=== PATIENT | male | born 1975 | race Caucasian/White ===

== ENCOUNTER → 2021-04-12 11:22 | Outpatient (BNVA) | payer OTHER, SELFPAY | PROVIDERS: Visit Provider Internal Medicine | DX: A69.20 Lyme disease, unspecified (principal); Z88.8 Allergy status to other drugs, medicaments and biological substances | CPT/HCPCS: 99202 ==

== ENCOUNTER 2022-01-10 08:01 | Emergency (ER) | payer OTHER, SELFPAY ==
--- NOTE | ~2022-01-10 | XR_ITS ---
EXAMINATION: XR FOOT, RIGHT CLINICAL INFORMATION: Trauma COMPARISON: None TECHNIQUE: AP, lateral, and oblique views of the right foot. FINDINGS: Soft tissue irregularity along the medial aspect of the right foot is most consistent with laceration. There is no radiopaque foreign body. No underlying osseous abnormality. Bones of the midfoot are well aligned. No tarsal, metatarsal or phalangeal fracture. Mild degenerative changes of the first MTP joint. No gross ankle joint effusion. Tiny posterior calcaneal enthesophyte. XR/XR foot RT min 3V IMPRESSION: Soft tissue laceration of the medial foot without osseous injury.
[2022-01-10 08:08] VITALS: BP 107/68; PULSE 85; RESP 20; TEMP 36.9; O2SAT 95; BMI 34.9
--- NOTE | 2022-01-10 08:39 | ED_ITS ---
HPI - Wound/Laceration General Chief Complaint: Wound/Laceration Stated Complaint: R foot lac Time Seen by Provider: 01/10/22 08:34 Source: patient and family Limitations: no limitations History of Present Illness HPI narrative: Patient states he dropped a plate on his right foot last night sustaining a laceration. Bleeding controlled prior to arrival. No other injuries or complaints. He is not up-to-date on tetanus. He denies weakness numbness or paresthesias Related Data Home Medications Medication Instructions Recorded Confirmed allopurinol 100 mg tablet 100 mg PO DAILY 04/12/21 lisinopril 10 mg tablet 10 mg PO DAILY 04/12/21 Previous Rx's Medication Instructions Recorded doxycycline monohydrate 100 mg 100 mg PO BID 30 days #60 tabs 04/12/21 tablet Allergies Allergy/AdvReac Type Severity Reaction Status Date / Time ibuprofen [IBUPROFEN] Allergy Unknown RASH Verified 04/12/21 11:33 Review of Systems Constitutional: Comments: no fevers Musculoskeletal: Comments: no weakness numbness or paresthesias. He is able to move his toes Integumentary/Breasts: Comments: right foot laceration Neurologic: Comments: no weakness PMFSH Past Medical History Medical History (Updated 01/10/22 @ 10:19 by Jason Regalado MD) Lyme disease Social History Social History Advance Directives: No Advance Directives Information Provided: No Physical Exam Vital Signs: Vital Signs: Last Vital Signs Temp 98.5 F 01/10/22 08:08 Pulse 85 01/10/22 08:08 Resp 20 01/10/22 08:08 BP 107/68 01/10/22 08:08 Pulse Ox 95 01/10/22 08:08 O2 Del Method 01/10/22 08:08 BMI result Body Mass Index 34.9 Const: Other: awake alert and in no acute distress Resp: Other: no dyspnea Skin: Other: 4 cm laceration to the medial aspect of his right foot, area of the mid foot. No active bleeding. Wound appears deep with possible tendon exposure Neuro: Other: no weakness numbness or paresthesias. Sensation is intact distal to the laceration Extrem: Other: full range of motion of great toe Course Course Course Narrative: right foot laceration with possible tendon exposure but no evidence of tendon laceration. Sutures, copious irrigation, tetanus, antibiotics 10:13 Exploration of wound under anesthesia shows positive tendon laceration to a medial tendon. Patient does have diminished abduction of his great toe. Full range of motion in flexion and extension however. Sensation is intact Wound sutured with good results and good hemostasis. I will discharge him home on antibiotics with Podiatry follow-up with question of tendon repair if indicated for this type of lesion. Procedures Procedure Narrative Procedure Narrative: Wound explored with tendon laceration as noted. Skin closed with good results Laceration Laceration 1: Site: lower extremity Side (If applicable): right Size (cm): 10 Description: linear Depth: involves tendon Local Anesthetic: lidocaine 1% Amount of anesthesia used (mL): 10 Pre-repair: wound explored and irrigated extensively Skin layer closed with: nylon Size (cm): 3-0 Technique: running Discharge Plan Discharge Clinical Impression: Laceration Patient Disposition: Home, Self-Care Instructions: Tendon Laceration (ED), Laceration (ED) Additional Instructions: sutures out in 3 weeks. Follow-up with [facility]. Call . Call today Prescriptions: No Action lisinopril 10 mg tablet 10 mg PO DAILY allopurinol 100 mg tablet 100 mg PO DAILY doxycycline monohydrate 100 mg tablet 100 mg PO BID 30 Days Qty: 60 0RF
[2022-01-10] MEDS: Diphth,Pertus(ACell),Tet Adult 0.5 ML SYRINGE IM (09:24)
[2022-01-10] MEDS: Lidocaine HCl 1 % MPF 5 ML VIAL 20 ML INFILTRATI (10:12)
[2022-01-10] MEDS: cephALEXin 500 MG CAPSULE 1000 MG PO (10:12)
--- NOTE | 2022-01-10 10:15 | PC.NURSE ---
After physican sutureed wound a dry clean dressing was placed over wound and wrapped with kirlex.
== END 2022-01-10 10:32 | disposition home or self-care (01) ==
PROVIDERS: Emergency Provider Emergency Medicine
DX: S91.311A Laceration without foreign body, right foot, initial encounter (principal); W20.8XXA Other cause of strike by thrown, projected or falling object, initial encounter; Y93.89 Activity, other specified; Y92.010 Kitchen of single-family (private) house as the place of occurrence of the external cause; Y99.9 Unspecified external cause status
CPT/HCPCS: 12044; 73630; 90471; 90715; 99282; 99283; 99284

== ENCOUNTER 2022-01-14 08:39 | Emergency (ER) | payer OTHER, SELFPAY ==
[2022-01-14 08:57] VITALS: BP 152/93; PULSE 88; RESP 18; TEMP 36.4; O2SAT 98; BMI 34.9
--- NOTE | 2022-01-14 09:58 | ED.GENADULT ---
HPI - General Adult General Chief complaint: Extremity Injury, Lower Stated complaint: leg pain Time Seen by Provider: 01/14/22 09:58 Source: patient Mode of arrival: ambulatory Limitations: no limitations History of Present Illness HPI narrative: Patient is a 46 year old male presenting to the emergency department today with a right foot injury. Patient states that a few days ago he stepped on glass and had to get stitches placed here. Patient states that he was prescribed antibiotics but has not picked them up. Patient states that his foot is now more painful and swollen. Patient denies any dizziness, lightheadedness, abdominal pain, nausea, vomiting, fever, chills, blurry vision, double vision, loss of vision, chest pain, difficulty breathing, shortness of breath, back pain, night sweats, pain with urination, increased urinary frequency, increased urinary urgency, blood in his urine or stool, syncope or a near syncopal episode, new trauma, falls, bowel incontinence, bladder incontinence, bowel retention, bladder retention, or any other complaints at this time. Onset (ago): day(s) Location: right and lower extremity Radiation: non-radiation Severity: mild Severity scale (1-10): 3 Quality: aching Pain Consistency: constant Relieving factors: none Exacerbating factors: none Associated symptoms: denies other symptoms Treatments prior to arrival: none Related Data Home Medications Medication Instructions Recorded Confirmed allopurinol 100 mg tablet 100 mg PO DAILY 04/12/21 lisinopril 10 mg tablet 10 mg PO DAILY 04/12/21 Previous Rx's Medication Instructions Recorded doxycycline monohydrate 100 mg 100 mg PO BID 30 days #60 tabs 04/12/21 tablet Allergies Allergy/AdvReac Type Severity Reaction Status Date / Time ibuprofen [IBUPROFEN] Allergy Unknown RASH Verified 04/12/21 11:33 Review of Systems Constitutional: Constitutional: Reports no additional constitutional complaints, Denies chills, Denies fever(s) and Denies night sweats Eyes: Eyes: Reports no additional eye complaints, Denies blurry vision, Denies change in vision, Denies diplopia, Denies eye discharge, Denies loss of vision and Denies eye pain ENT: Denies dizziness Cardiovascular: Cardiovascular: Reports no additional cardiovascular complaints, Denies chest pain, Denies lightheadedness, Denies Loss of Consciousness and Denies dyspnea Respiratory: Respiratory: Reports no additional respiratory complaints and Denies dyspnea Gastrointestinal: Gastrointestinal: Reports no additional gastrointestinal complaints, Denies abdominal pain, Denies melena, Denies hematochezia, Denies change in bowel habits and Denies change in stool character Genitourinary: Genitourinary: Reports no additional male genitourinary complaints, Denies hematuria, Denies oliguria, Denies difficulty urinating, Denies dysuria, Denies urinary frequency, Denies urinary hesitancy, Denies urinary incontinence and Denies urinary urgency Musculoskeletal: Musculoskeletal: Reports no additional musculoskeletal complaints, Denies numbness and Denies tingling Comments: right foot pain, sutures in right foot Neurologic: Denies dizziness, Denies loss of vision, Denies numbness and Denies tingling Psychiatric: Psychiatric: Reports no additional psychiatric complaints Endocrine: Endocrine: Reports no additional endocrine complaints Hematologic/Lymphatic: Hematologic/Lymphatic: Reports no additional hematologic/lymphatic complaints Allergic/Immunologic: Allergic/Immunologic: Reports no additional allergic/immunologic complaints PMFSH Past Medical History Attestation statement: The following information was validated with the patient. Source: old records reviewed Medical History Lyme disease Social History Social History Advance Directives: No Advance Directives Information Provided: No Physical Exam ED Vital Signs: Vital Signs - 24 hr 01/14/22 08:57 Temperature 97.5 F Pulse Rate 88 Respiratory Rate 18 Blood Pressure 152/93 H Pulse Oximetry 98 Oxygen Delivery Method Room Air BMI result Body Mass Index 34.9 Const General: cooperative, no acute distress, alert and awake Nutritional Appearance: well nourished Orientation/consciousness: patient oriented x3 Limitations: no limitations [facility] Head: Yes normal to inspection and Yes atraumatic Ears: hearing grossly normal bilaterally and external ears normal General nose exam: Normal external nose present, no nasal discharge noted and no epistaxis Face and sinus: Yes normal facial exam, No abrasion and No laceration Mouth: Normal oral and palatal mucosa present, no drooling and no muffled voice Eyes General: appearance normal, both eyes and all related structures Periorbital: periorbital findings normal Eyelids: Yes eyelids normal Conjunctivae: conjunctivae normal Pupils: Equal, round and reactive pupils present EOM: EOMs intact bilaterally Neck Neck: Yes normal visual inspection, Yes full ROM and Yes no lymphadenopathy Chest Chest palpation & inspection: normal inspection of the chest Resp Effort & Inspection: normal respiratory effort and able to speak in complete sentences Auscultation: clear to auscultation bilaterally Cardio Rate: regular rate Rhythm: regular rhythm GI Inspection: Yes normal to inspection Skin Other: [address] in the right foot, wound is well approximated, erythema and warmth surrounding the wound Neuro General: patient oriented x3 and moves all extremities Cranial nerves: Yes Equal, round and reactive pupils present Cognition (Neuro): normal cognition Motor exam (neuro): 5/5 motor strength present throughout Sensory Exam: Normal double simultaneous stimulation for sensation Coordination: [id number] test normal Extrem General: Yes full ROM and Yes capillary refill normal Psych Appearance: grossly normal Mental Status: mental status grossly normal Affect: normal affect Attitude: cooperative Thought process: Normal thought process present Thought content: Normal thought content present Insight: Good insight present (Psych) Medical Decision Making MDM Narrative Medical decision making narrative: Patient is a 46 year old male presenting to the emergency department today for increased pain to his right foot. Patient's physical exam showed a wound infection around the patient's previously sutured area of the right foot. I explained my physical exam findings to the patient. I answered all questions asked by the patient. Patient received IM Ceftriaxone while in the department. Patient's infection was superficial and just around the edges of the wound. There was no fluctuance underneath the wound and no signs of abscess. I stressed the importance of the patient taking his medication as prescribed. I stressed the importance of the patient following up with his primary care provider and a ekg technician. I stressed the importance of the patient returning to the emergency department immediately if his symptoms were to worsen or if he were to develop any dizziness, shortness of breath, difficulty breathing, chest pain, blurry vision, loss of vision, nausea, vomiting, abdominal pain, fever, chills, back pain, or any other complaints. Patient verbalized agreement and understanding with this treatment plan and discharge. Differential Diagnosis Differential Diagnosis: wound infection, cellulitis, right foot injury Medical Records Medical records reviewed: Yes I reviewed the patient's medical records. Discharge Plan Discharge Clinical Impression: Infection Patient Disposition: Home, Self-Care Instructions: Laceration (ED) Prescriptions: No Action lisinopril 10 mg tablet 10 mg PO DAILY allopurinol 100 mg tablet 100 mg PO DAILY doxycycline monohydrate 100 mg tablet 100 mg PO BID 30 Days Qty: 60 0RF Referrals: Shane Gaona DPM [Physician] - Interventions: ED Discharge Assessment Last Done: 01/14/22 10:21 Discharge Date/Time: 01/14/22 10:23 Print Language: Icelandic
[2022-01-14] MEDS: cefTRIAXone sodium 500 MG, Lidocaine HCl 1 % MPF 1 ML IM (10:17)
== END 2022-01-14 10:23 | disposition home or self-care (01) ==
PROVIDERS: Emergency Provider Emergency Medicine
DX: S91.301D Unspecified open wound, right foot, subsequent encounter (principal); L08.9 Local infection of the skin and subcutaneous tissue, unspecified; W25.XXXD Contact with sharp glass, subsequent encounter
CPT/HCPCS: 96372; 99283; 99284; J0696

== ENCOUNTER 2023-07-02 17:05 | Emergency (ER) | payer OTHER, SELFPAY ==
[2023-07-02 18:02] LABS: MANUAL DIFF FLAG NO
[2023-07-02 18:11] VITALS: BP 188/109; PULSE 75; RESP 18; TEMP 36.3; O2SAT 96; BMI 38.5
[2023-07-02 18:13] LABS: Basophils Percent Auto 0.7 % (0-2); Eosinophils Absolute Auto 0.2 X10*3/uL (0.0-0.4); Eosinophils Percent Auto 3.5 % (0-4); Hematocrit 44.9 % (42.0-52.0); Hemoglobin 14.6 g/dl (14.0-18.0); Imm Gran Abs Auto 0.01 X10*3/uL (0.00-0.03); Imm Gran Pct Auto 0.2 % (0.0-0.4); Lymphocytes Absolute Auto 1.4 X10*3/uL (1.2-4.9); Lymphocytes Percent Auto 26.3 % (20-40); Mean Corpuscular HGB Conc 32.5 g/dl (31.0-36.0); Mean Platelet Volume 10.2 fL (9.4-12.4); Monocytes Absolute Auto 0.6 X10*3/uL (0.1-1.2); Monocytes Percent Auto 10.6 % (2-11); Neutrophils Absolute Auto 3.1 x10*3/uL (2.0-8.3); Neutrophils Percent Auto 58.7 % (45-73); Platelet Count 197 X10*3/uL (160-400); Red Blood Count 5.22 X10*6/uL (4.60-5.80); Red Cell Distribution Width 14.5 % (11.0-16.0); White Blood Count 5.4 X10*3/uL (4.8-10.8)
--- NOTE | 2023-07-02 18:16 | ED_ITS ---
HPI - General Adult General Chief complaint: General Medical Stated complaint: right side low back pain Related Data Home Medications ?Medication ?Instructions ?Recorded ?Confirmed allopurinol 100 mg tablet 100 mg PO DAILY 04/12/21 lisinopril 10 mg tablet 10 mg PO DAILY 04/12/21 Previous Rx's ?Medication ?Instructions ?Recorded doxycycline monohydrate 100 mg 100 mg PO BID 30 days #60 tabs 04/12/21 tablet cephalexin 500 mg capsule 500 mg PO Q6H 7 days #28 caps 01/14/22 artifi.tears(hypromellose)(PF) 1.7 1 drp ophthalmic (eye) BID PRN dry 07/05/23 % eye drops with applicator eyes #12 mL erythromycin 5 mg/gram (0.5 %) eye 1 appl ophthalmic (eye) TID 5 days 07/05/23 ointment #3.5 grams sumatriptan succinate 25 mg tablet See Rx Instructions PO .COMPLEX 07/23/23 (Imitrex) #10 tabs metoclopramide HCl 10 mg tablet 10 mg PO Q6H PRN nausea and 07/25/23 (Reglan) vomiting #14 tabs carbamazepine 200 mg tablet 200 mg PO BID #60 tabs 08/16/23 metoclopramide HCl 10 mg tablet 10 mg PO Q6H PRN nausea and 08/16/23 (Reglan) vomiting #14 tabs morphine 15 mg immediate release 15 mg PO Q6H PRN pain #10 tabs 08/16/23 tablet Allergies Allergy/AdvReac Type Severity Reaction Status Date / Time ibuprofen [IBUPROFEN] Allergy Unknown RASH Verified 08/16/23 17:11 COUNT INCLUDES THE [facility] Past Medical History Medical History Lyme disease Physical Exam ED Vital Signs: Vital Signs - 24 hr 07/02/23 18:11 Temperature 97.3 F Pulse Rate 75 Respiratory Rate 18 Blood Pressure 188/109 H Pulse Oximetry 96 Oxygen Delivery Method Room Air BMI result Body Mass Index 38.5 Course Course Course Narrative: This is an RME: Additional HPI, ROS, PE not included below will be deferred to primary provider. 48-year-old male presents with ?kidney pain ?, this has been an ongoing for 2 weeks he does not think there is associated trauma, denies urinary symptoms, he reports it is worse with movement, he also reports vague complaints of right foot pain. Denies fevers, chills. Plan labs, imaging, urine Medical Decision Making Lab Data 07/02/23 17:51 07/02/23 17:51 Labs: Lab Results 07/02/23 Range/Units 17:51 WBC 5.4 (4.8-10.8) X10*3/uL RBC 5.22 (4.60-5.80) X10*6/uL Hgb 14.6 (14.0-18.0) g/dl Hct 44.9 (42.0-52.0) % MCV 86.0 (80.0-98.0) fL MCH 28.0 (27.0-33.0) pg MCHC 32.5 (31.0-36.0) g/dl RDW 14.5 (11.0-16.0) % Plt Count 197 (160-400) X10*3/uL MPV 10.2 (9.4-12.4) fL Immature Gran % (Auto) 0.2 (0.0-0.4) % Neut % (Auto) 58.7 (45-73) % Lymph % (Auto) 26.3 (20-40) % [place] % (Auto) 10.6 (2-11) % Eos % (Auto) 3.5 (0-4) % Baso % (Auto) 0.7 (0-2) % Lymph # (Auto) 1.4 (1.2-4.9) X10*3/uL [place] # (Auto) 0.6 (0.1-1.2) X10*3/uL Eos # (Auto) 0.2 (0.0-0.4) X10*3/uL Baso # (Auto) 0.0 (0.0-0.2) X10*3/uL Abs Immat Gran (auto) 0.01 (0.00-0.03) X10*3/uL Absolute Neuts (auto) 3.1 (2.0-8.3) x10*3/uL Absolute Nucleated RBC 0.000 (0.0-0.012) X10*3/uL Nucleated RBC % (auto) 0.0 (0.0-0.2) /100WBC Sodium 141 (135-145) mmol/L Potassium 4.2 (3.3-5.1) mmol/L Chloride 105 (96-108) mmol/L Carbon Dioxide 30 H (22-29) mmol/L Anion Gap 10 L (12-20) BUN 19 H (9-16) mg/dL Creatinine 1.17 (0.5-1.4) mg/dL Estim Creat Clear Calc 113.3 Estimated GFR > 60 Random Glucose 99 (60-115) mg/dL Calcium 9.3 (8.4-10.2) mg/dL Magnesium 2.0 (1.6-2.6) mg/dL Total Bilirubin 0.5 (0.0-1.0) mg/dL AST 37 (5-37) U/L ALT 60 H (0-40) U/L Alkaline Phosphatase 55 (39-117) U/L Total Protein 7.1 (6.5-8.0) g/dL Albumin 4.2 (3.5-5.0) g/dL Lipase 38 (8-78) U/L Discharge Plan Discharge Clinical Impression: Eloped from emergency department Patient Disposition: Left W/O Completing Treatment Prescriptions: No Action cephalexin 500 mg capsule 500 mg PO Q6H 7 Days Qty: 28 0RF artifi.tears(hypromellose)(PF) 1.7 % drops with applicator 1 drp ophthalmic (eye) BID PRN (Reason: dry eyes) Qty: 12 0RF erythromycin 5 mg/gram (0.5 %) ointment 1 appl ophthalmic (eye) TID 5 Days Qty: 3.5 0RF sumatriptan succinate [Imitrex] 25 mg tablet See Rx Instructions .ROUTE .COMPLEX Qty: 10 0RF Rx Instructions: take 1 tab at onset of headache; if no relief may repeat 1 tab after at least 2 hrs; max = 4 tabs/24 hr metoclopramide HCl [Reglan] 10 mg tablet 10 mg PO Q6H PRN (Reason: nausea and vomiting) Qty: 14 0RF morphine 15 mg tablet 15 mg PO Q6H PRN (Reason: pain) Qty: 10 0RF Rx Instructions: The patient may ask for partial fill; Partial Fill upon patient request. metoclopramide HCl [Reglan] 10 mg tablet 10 mg PO Q6H PRN (Reason: nausea and vomiting) Qty: 14 0RF carbamazepine 200 mg tablet 200 mg PO BID Qty: 60 0RF lisinopril 10 mg tablet 10 mg PO DAILY allopurinol 100 mg tablet 100 mg PO DAILY doxycycline monohydrate 100 mg tablet 100 mg PO BID 30 Days Qty: 60 0RF Discharge Date/Time: 07/02/23 23:54
[2023-07-02 18:27] LABS: Alanine Aminotransferase 60 U/L (0-40); Albumin Level 4.2 g/dL (3.5-5.0); Alkaline Phosphatase 55 U/L (39-117); Anion Gap 10 (12-20); Aspartate Amino Transferase 37 U/L (5-37); Bilirubin Total 0.5 mg/dL (0.0-1.0); Blood Urea Nitrogen 19 mg/dL (9-16); Calcium 9.3 mg/dL (8.4-10.2); Carbon Dioxide 30 mmol/L (22-29); Chloride 105 mmol/L (96-108); Creatinine Clr Calc Pharmacy 113.3; Estimated Glomerular Filt Rate > 60; Glucose Random 99 mg/dL (60-115); Lipase 38 U/L (8-78); Potassium 4.2 mmol/L (3.3-5.1); Sodium 141 mmol/L (135-145); Total Protein 7.1 g/dL (6.5-8.0)
--- NOTE | 2023-07-02 23:41 | PC.NURSE ---
pt not in waiting room at 2330.
== END 2023-07-02 23:54 | disposition left against medical advice (07) ==
LOC: HO.ED 23:43
PROVIDERS: Physician Assistant; Emergency Provider Emergency Medicine; PCP Internal Medicine
DX: M54.50 Low back pain, unspecified (principal); Z53.21 Procedure and treatment not carried out due to patient leaving prior to being seen by health care provider
CPT/HCPCS: 36415; 80053; 83690; 83735; 85025; 99281; 99283

== ENCOUNTER 2023-07-04 08:32 | Emergency (ER) | payer OTHER, SELFPAY ==
--- NOTE | ~2023-07-04 | CT_ITS ---
EXAMINATION: CT ABDOMEN AND PELVIS WITHOUT CONTRAST CLINICAL INFORMATION: Right-sided flank pain COMPARISON: None available. TECHNIQUE: Multidetector volumetric imaging was performed from the superior aspect of the liver through the pubic symphysis. Sagittal and coronal reformatted images were obtained on the technologist's workstation. This CT examination was performed using dose optimization techniques as appropriate, variously including the following: *Automated exposure control *Adjustment of mA and/or kV according to patient size (this includes techniques or standardized protocols for targeted exams where dose is matched to indication/reason for exam; i.e. extremities or head) *Use of iterative reconstruction technique DLP: 1175 mGy-cm FINDINGS: LUNG BASES: The visualized lung bases are unremarkable. LIVER, GALLBLADDER, AND BILIARY TREE: The liver is normal in size, shape, and attenuation. No focal hepatic lesion or biliary ductal dilatation is present. The gallbladder is unremarkable with no evidence of radiopaque gallstones, gallbladder wall thickening, or obvious pericholecystic inflammatory changes. PANCREAS: Unremarkable. SPLEEN: Unremarkable. ADRENAL GLANDS: Unremarkable. KIDNEYS AND URETERS: The kidneys are normal in size, shape, and attenuation. No hydronephrosis, hydroureter, or calculi seen. There is bilateral nonspecific perinephric stranding. BLADDER: Unremarkable. GASTROINTESTINAL TRACT: The small and large bowel are unremarkable. The appendix is unremarkable. ABDOMINAL WALL: No significant hernia is appreciated. LYMPH NODES: Normal. VASCULAR: Unremarkable. An accessory right lower pole renal artery is present draining arising from the distal aorta (6:63). PELVIC VISCERA: The prostate and seminal vesicles are unremarkable. OSSEOUS STRUCTURES: Degenerative changes are present in the spine most marked at L5-S1. There is mild anterior wedging of T9-T11. No bony destructive lesions are seen CT/CT abdomen pelvis wo IV con IMPRESSION: A cause for the patient's right-sided flank pain has not been found. There is no nephrolithiasis. The appendix is normal. Fleischner guidelines were followed.
[2023-07-04 08:33] VITALS: BP 167/117; PULSE 76; RESP 18; TEMP 36.2; O2SAT 96; BMI 37.5
--- NOTE | 2023-07-04 08:58 | ED_ITS ---
HPI - General Adult General Chief complaint: Abdominal Pain Stated complaint: kidney pain Time Seen by Provider: 07/04/23 08:57 Source: patient Mode of arrival: ambulatory Limitations: no limitations History of Present Illness HPI narrative: Patient is a 48 year old assigned male at with a history of lyme disease presenting to the emergency department today with right sided flank pain. Patient states that over the last 3 days he has had right sided flank pain. Patient denies any dizziness, lightheadedness, abdominal pain, nausea, vomiting, fever, chills, blurry vision, double vision, loss of vision, chest pain, difficulty breathing, shortness of breath, back pain, night sweats, pain with urination, increased urinary frequency, increased urinary urgency, blood in his urine or stool, syncope or a near syncopal episode, recent trauma or falls, bowel incontinence, bladder incontinence, bowel retention, bladder retention, or any other complaints at this time. Onset (ago): day(s) (3) Location: right (flank) Radiation: non-radiation Severity: mild Severity scale (1-10): 3 Quality: dull Pain Consistency: constant Relieving factors: none Exacerbating factors: none Associated symptoms: denies other symptoms Treatments prior to arrival: none Related Data Home Medications Medication Instructions Recorded Confirmed allopurinol 100 mg tablet 100 mg PO DAILY 04/12/21 lisinopril 10 mg tablet 10 mg PO DAILY 04/12/21 Previous Rx's Medication Instructions Recorded doxycycline monohydrate 100 mg 100 mg PO BID 30 days #60 tabs 04/12/21 tablet cephalexin 500 mg capsule 500 mg PO Q6H 7 days #28 caps 01/14/22 Allergies Allergy/AdvReac Type Severity Reaction Status Date / Time ibuprofen [IBUPROFEN] Allergy Unknown RASH Verified 07/02/23 18:11 Review of Systems 2 Constitutional: Constitutional: Reports no additional constitutional complaints, Denies chills, Denies fever(s) and Denies night sweats Eyes: Eyes: Reports no additional eye complaints, Denies blurry vision, Denies change in vision, Denies diplopia, Denies eye discharge, Denies loss of vision and Denies eye pain ENT: Denies dizziness Cardiovascular: Cardiovascular: Reports no additional cardiovascular complaints, Denies chest pain, Denies lightheadedness, Denies Loss of Consciousness and Denies dyspnea Respiratory: Respiratory: Reports no additional respiratory complaints and Denies dyspnea Gastrointestinal: Gastrointestinal: Reports no additional gastrointestinal complaints, Denies abdominal pain, Denies melena, Denies hematochezia, Denies change in bowel habits and Denies change in stool character Genitourinary: Genitourinary: Reports no additional male genitourinary complaints, Denies hematuria, Denies oliguria, Denies difficulty urinating, Denies dysuria, Reports flank pain (right), Denies urinary frequency, Denies urinary hesitancy, Denies urinary incontinence and Denies urinary urgency Musculoskeletal: Musculoskeletal: Reports no additional musculoskeletal complaints, Denies numbness and Denies tingling Neurologic: Denies dizziness, Denies loss of vision, Denies numbness and Denies tingling Psychiatric: Psychiatric: Reports no additional psychiatric complaints Endocrine: Endocrine: Reports no additional endocrine complaints Hematologic/Lymphatic: Hematologic/Lymphatic: Reports no additional hematologic/lymphatic complaints Allergic/Immunologic: Allergic/Immunologic: Reports no additional allergic/immunologic complaints PMFSH Past Medical History Attestation statement: The following information was validated with the patient. Source: old records reviewed and nursing notes reviewed Medical History Lyme disease Social History Social History Smoked in Last 30 Days: No Use of substances other than those prescribed or required for medical reasons: No Advance Directives: No Advance Directives Information Provided: No Physical Exam ED Vital Signs: Vital Signs - 24 hr 07/04/23 08:33 07/04/23 10:13 Temperature 97.2 F Pulse Rate 76 62 Respiratory Rate 18 16 Blood Pressure 167/117 H 174/105 H Pulse Oximetry 96 96 Oxygen Delivery Method Room Air Room Air BMI result Body Mass Index 37.5 Const General: cooperative, no acute distress, alert and awake Nutritional Appearance: well nourished Orientation/consciousness: patient oriented x3 Limitations: no limitations HENMT Head: Yes normal to inspection and Yes atraumatic Ears: hearing grossly normal bilaterally and external ears normal General nose exam: Normal external nose present, no nasal discharge noted and no epistaxis Face and sinus: Yes normal facial exam, No abrasion and No laceration Mouth: Normal oral and palatal mucosa present, no drooling and no muffled voice Eyes General: appearance normal, both eyes and all related structures Periorbital: periorbital findings normal Eyelids: Yes eyelids normal Conjunctivae: conjunctivae normal Pupils: Equal, round and reactive pupils present EOM: EOMs intact bilaterally Neck Neck: Yes normal visual inspection, Yes full ROM and Yes no lymphadenopathy Chest Chest palpation & inspection: normal inspection of the chest Resp Effort & Inspection: normal respiratory effort and able to speak in complete sentences GI Inspection: Yes normal to inspection Palpation (GI): Soft to palpation, not firm, nontender and no guarding General: Yes no CVA tenderness Back/Spine/Pelvis Back: no CVA tenderness Neuro General: patient oriented x3 and moves all extremities Cranial nerves: Yes Equal, round and reactive pupils present Cognition (Neuro): normal cognition Motor exam (neuro): 5/5 motor strength present throughout Sensory Exam: Normal double simultaneous stimulation for sensation Coordination: [id number] test normal Extrem General: Yes normal to inspection, Yes full ROM and Yes capillary refill normal Psych Appearance: grossly normal Mental Status: mental status grossly normal Affect: normal affect Attitude: cooperative Thought process: Normal thought process present Thought content: Normal thought content present Insight: Good insight present (Psych) Medications Administered Discontinued Medications Generic Name Dose Route Start Last Admin Trade Name Freq PRN Reason Stop Dose Admin Sodium Chloride 1,000 mls @ 999 mls/hr 07/04/23 09:15 07/04/23 10:33 Ns IV 07/04/23 10:15 Infused .Q1H1M HAN Infusion Ketorolac Tromethamine 15 mg 07/04/23 09:07 07/04/23 09:17 Ketorolac Tromethamine 15 Mg/Ml Vial IVPUSH 07/04/23 09:08 15 mg ONCE ONE Administration Medical Decision Making Medical Decision Making [facility] Narrative: Patient is a 48 year old assigned male at with a history of lyme disease presenting to the emergency department today with right sided flank pain. Patient's physical exam was unremarkable. Patient's blood work was unremarkable. Patient's urine showed no acute process. Patient's CT abdomen/pelvis showed no acute process. I explained my physical exam findings as well as all test results to the patient. I answered all questions asked by the patient. Patient received IV fluids and Toradol which he stated helped his symptoms significantly. I stressed the importance of the patient taking his medication as prescribed. I stressed the importance of the patient following up with his primary care provider. I stressed the importance of the patient returning to the emergency department immediately if his symptoms were to worsen or if he were to develop any dizziness, shortness of breath, difficulty breathing, chest pain, blurry vision, loss of vision, nausea, vomiting, abdominal pain, fever, chills, back pain, or any other complaints. Patient verbalized agreement and understanding with this treatment plan and discharge. Differential Diagnosis Differential Diagnoses: The differential diagnosis associated with the presentation includes Kidney stone Flank pain Viral illness EVER Admission/Observation Consideration of admission/observation: Escalation of care including admission/observation considered Patient would have been admitted to the hospital had his work up had any findings where hospital admission was appropriate and his clinical presentation warranted hospital admission. Lab Data MDM Lab Attestation statement: I reviewed the patient's lab results. My interpretation of these studies and their corresponding values is that they are grossly normal. 07/04/23 09:08 07/04/23 09:08 Labs: Lab Results 07/04/23 07/04/23 Range/Units 09:08 09:20 WBC 5.6 (4.8-10.8) X10*3/uL RBC 5.61 (4.60-5.80) X10*6/uL Hgb 15.8 (14.0-18.0) g/dl Hct 46.7 (42.0-52.0) % MCV 83.2 (80.0-98.0) fL MCH 28.2 (27.0-33.0) pg MCHC 33.8 (31.0-36.0) g/dl RDW 14.0 (11.0-16.0) % Plt Count 198 (160-400) X10*3/uL MPV 10.1 (9.4-12.4) fL Immature Gran % (Auto) 0.2 (0.0-0.4) % Neut % (Auto) 75.1 H (45-73) % Lymph % (Auto) 15.7 L (20-40) % [place] % (Auto) 7.7 (2-11) % Eos % (Auto) 1.1 (0-4) % Baso % (Auto) 0.2 (0-2) % Lymph # (Auto) 0.9 L (1.2-4.9) X10*3/uL [place] # (Auto) 0.4 (0.1-1.2) X10*3/uL Eos # (Auto) 0.1 (0.0-0.4) X10*3/uL Baso # (Auto) 0.0 (0.0-0.2) X10*3/uL Abs Immat Gran (auto) 0.01 (0.00-0.03) X10*3/uL Absolute Neuts (auto) 4.2 (2.0-8.3) x10*3/uL Absolute Nucleated RBC 0.000 (0.0-0.012) X10*3/uL Nucleated RBC % (auto) 0.0 (0.0-0.2) /100WBC Sodium 136 (135-145) mmol/L Potassium 4.4 (3.3-5.1) mmol/L Chloride 103 (96-108) mmol/L Carbon Dioxide 26 (22-29) mmol/L Anion Gap 11 L (12-20) BUN 15 (9-16) mg/dL Creatinine 0.86 (0.5-1.4) mg/dL Estim Creat Clear Calc 156.2 Estimated GFR > 60 Random Glucose 117 H (60-115) mg/dL Calcium 9.1 (8.4-10.2) mg/dL Urine Color Yellow Urine Appearance Clear Urine pH 6.5 (5.0-9.0) Ur Specific [place] 1.025 (1.005-1.025) Urine Protein Negative (Neg-Trace) mg/dL Urine Glucose (UA) Negative (Negative) mg/dL Urine Ketones Negative (Negative) mg/dL Urine Blood Negative (Negative) Urine Nitrite Negative (Negative) Ur Leukocyte Esterase Negative (Negative) Independent Interpretation I performed an independent interpretation of an: CT Scan Interpretation: My interpretation is in agreement with the radiologist's impression of this imaging study. - EXAMINATION: CT ABDOMEN AND PELVIS WITHOUT CONTRAST CLINICAL INFORMATION: Right-sided flank pain COMPARISON: None available. TECHNIQUE: Multidetector volumetric imaging was performed from the superior aspect of the liver through the pubic symphysis. Sagittal and coronal reformatted images were obtained on the technologist's workstation. This CT examination was performed using dose optimization techniques as appropriate, variously including the following: *Automated exposure control *Adjustment of mA and/or kV according to patient size (this includes techniques or standardized protocols for targeted exams where dose is matched to indication/reason for exam; i.e. extremities or head) *Use of iterative reconstruction technique DLP: 1175 mGy-cm FINDINGS: LUNG BASES: The visualized lung bases are unremarkable. LIVER, GALLBLADDER, AND BILIARY TREE: The liver is normal in size, shape, and attenuation. No focal hepatic lesion or biliary ductal dilatation is present. The gallbladder is unremarkable with no evidence of radiopaque gallstones, gallbladder wall thickening, or obvious pericholecystic inflammatory changes. PANCREAS: Unremarkable. SPLEEN: Unremarkable. ADRENAL GLANDS: Unremarkable. KIDNEYS AND URETERS: The kidneys are normal in size, shape, and attenuation. No hydronephrosis, hydroureter, or calculi seen. There is bilateral nonspecific perinephric stranding. BLADDER: Unremarkable. GASTROINTESTINAL TRACT: The small and large bowel are unremarkable. The appendix is unremarkable. ABDOMINAL WALL: No significant hernia is appreciated. LYMPH NODES: Normal. VASCULAR: Unremarkable. An accessory right lower pole renal artery is present draining arising from the distal aorta (6:63). PELVIC VISCERA: The prostate and seminal vesicles are unremarkable. OSSEOUS STRUCTURES: Degenerative changes are present in the spine most marked at L5-S1. There is mild anterior wedging of T9-T11. No bony destructive lesions are seen CT/CT abdomen pelvis wo IV con IMPRESSION: A cause for the patient's right-sided flank pain has not been found. There is no nephrolithiasis. The appendix is normal. Fleischner guidelines were followed. Dictated By: James Aponte MD Signed By: Electronically signed by James Aponte MD 07/04/23 1004 Radiology Impression Discussion of test interpretation with radiology: I have reviewed the radiologist's reading. Discharge Plan Discharge Clinical Impression: Flank pain Patient Disposition: Home, Self-Care Instructions: Flank Pain (ED) Additional Instructions: Follow up with your primary care provider. Return to the emergency department immediately if your symptoms worsen or if you develop any dizziness, shortness of breath, difficulty breathing, chest pain, blurry vision, loss of vision, nausea, vomiting, abdominal pain, fever, chills, back pain, or any other complaints. Prescriptions: No Action cephalexin 500 mg capsule 500 mg PO Q6H 7 Days Qty: 28 0RF lisinopril 10 mg tablet 10 mg PO DAILY allopurinol 100 mg tablet 100 mg PO DAILY doxycycline monohydrate 100 mg tablet 100 mg PO BID 30 Days Qty: 60 0RF Referrals: Adela Banks MD [Primary Care Provider] - Stand Alone Forms: Work/School Release Interventions: ED Discharge Assessment Last Done: 07/04/23 10:33 Discharge Date/Time: 07/04/23 10:33 Print Language: Korean
[2023-07-04 09:13] LABS: MANUAL DIFF FLAG NO
[2023-07-04 09:15] LABS: Basophils Percent Auto 0.2 % (0-2); Eosinophils Absolute Auto 0.1 X10*3/uL (0.0-0.4); Eosinophils Percent Auto 1.1 % (0-4); Hematocrit 46.7 % (42.0-52.0); Hemoglobin 15.8 g/dl (14.0-18.0); Imm Gran Abs Auto 0.01 X10*3/uL (0.00-0.03); Imm Gran Pct Auto 0.2 % (0.0-0.4); Lymphocytes Absolute Auto 0.9 X10*3/uL (1.2-4.9); Lymphocytes Percent Auto 15.7 % (20-40); Mean Corpuscular HGB Conc 33.8 g/dl (31.0-36.0); Mean Corpuscular Hemoglobin 28.2 pg (27.0-33.0); Mean Corpuscular Volume 83.2 fL (80.0-98.0); Mean Platelet Volume 10.1 fL (9.4-12.4); Monocytes Absolute Auto 0.4 X10*3/uL (0.1-1.2); Monocytes Percent Auto 7.7 % (2-11); Neutrophils Absolute Auto 4.2 x10*3/uL (2.0-8.3); Neutrophils Percent Auto 75.1 % (45-73); Platelet Count 198 X10*3/uL (160-400); Red Blood Count 5.61 X10*6/uL (4.60-5.80); White Blood Count 5.6 X10*3/uL (4.8-10.8)
[2023-07-04] MEDS: Ketorolac Tromethamine 15 MG/ML VIAL IVPUSH (09:17)
[2023-07-04] MEDS: 0.9 % Sodium Chloride 1,000 ML 999 ML IV (09:17)
[2023-07-04 09:28] LABS: Anion Gap 11 (12-20); Blood Urea Nitrogen 15 mg/dL (9-16); Calcium 9.1 mg/dL (8.4-10.2); Carbon Dioxide 26 mmol/L (22-29); Chloride 103 mmol/L (96-108); Creatinine Clr Calc Pharmacy 156.2; Estimated Glomerular Filt Rate > 60; Glucose Random 117 mg/dL (60-115); Potassium 4.4 mmol/L (3.3-5.1); Sodium 136 mmol/L (135-145)
[2023-07-04 09:30] LABS: Appearance Urine Clear; Color Urine Yellow; Glucose Urine UA Negative (Negative); Leukocyte Esterase Urine Negative (Negative); Nitrite Urine Negative (Negative); PH 6.5 (5.0-9.0); Specific Gravity - Urine 1.025 (1.005-1.025); Urine Blood Negative (Negative); Urine Ketones Negative (Negative); Urine Protein Negative (Neg-Trace)
[2023-07-04 10:13] VITALS: BP 174/105; PULSE 62; RESP 16; O2SAT 96
== END 2023-07-04 10:33 | disposition home or self-care (01) ==
PROVIDERS: Emergency Provider Emergency Medicine Emergency Medical Services; PCP Internal Medicine
DX: R10.9 Unspecified abdominal pain (principal); R11.2 Nausea with vomiting, unspecified; Z79.899 Other long term (current) drug therapy
CPT/HCPCS: 36415; 74176; 80048; 81003; 85025; 96361; 96374; 99284; J1885

== ENCOUNTER 2023-07-05 09:04 | Emergency (ER) | payer OTHER, SELFPAY ==
--- NOTE | ~2023-07-05 | CT_ITS ---
EXAMINATION: CT HEAD WITHOUT CONTRAST CLINICAL INFORMATION: Headache COMPARISON: 48-year-old male with headache EXAMINATION: CT head/brain wo IV con CLINICAL INFORMATION: Additional Information: 765.00 mgy : COMPARISON: None. TECHNIQUE: Contiguous axial imaging was performed from the skull base to vertex without intravenous contrast. This CT examination was performed using dose optimization techniques as appropriate, variously including the following: * Automated exposure control * Adjustment of mA and/or kV according to patient size (this includes techniques or standardized protocols for targeted exams where dose is matched to indication/reason for exam; i.e. extremities or head) * Use of iterative reconstruction technique DLP: 765 mGy-cm. FINDINGS: There is no evidence of acute intracranial hemorrhage or territorial infarction. Ascencio to white matter differentiation is well preserved. No abnormal mass effect or midline shift is seen. No extra-axial fluid collections are identified. No hydrocephalus. No significant volume loss. There is no abnormal attenuation within the brain parenchyma. The cerebellar tonsils are well positioned. No acute osseous or soft tissue abnormality. Visualized portions of the orbits are unremarkable. The mastoid air cells and visualized portions of the paranasal sinuses are well aerated. CT/CT head/brain wo IV con IMPRESSION: No acute intracranial pathology.
[2023-07-05 09:20] VITALS: BP 166/95; PULSE 72; RESP 19; TEMP 36.7; O2SAT 96; BMI 38.0
--- NOTE | 2023-07-05 09:32 | ED.EYEPROB ---
HPI - Eye Problem General Chief complaint: Eye Problems Stated complaint: seen 07/04,eye pain/ back pain Time Seen by Provider: 07/05/23 09:26 Source: patient Mode of arrival: ambulatory Limitations: no limitations History of Present Illness HPI Narrative: 48-year-old male history of Lyme disease presenting to the emergency department with right sided eye discomfort for the past week, patient reports pain started after being in a cold basement, a mohan of wind his eye and since then he has been having pouring discomfort. He reports the discomfort is constant nature. He denies trauma to the eye, visual changes, headache, dizziness, weakness, nausea, vomiting, abdominal pain, chest pain, shortness of breath. Patient also requesting to get his blood pressure checked while here in the department. He thinks it may be high but he does not know why. NIH stroke scale 0. Related Data Home Medications Medication Instructions Recorded Confirmed allopurinol 100 mg tablet 100 mg PO DAILY 04/12/21 lisinopril 10 mg tablet 10 mg PO DAILY 04/12/21 Previous Rx's Medication Instructions Recorded doxycycline monohydrate 100 mg 100 mg PO BID 30 days #60 tabs 04/12/21 tablet cephalexin 500 mg capsule 500 mg PO Q6H 7 days #28 caps 01/14/22 artifi.tears(hypromellose)(PF) 1.7 1 drp ophthalmic (eye) BID PRN dry 07/05/23 % eye drops with applicator eyes #12 mL erythromycin 5 mg/gram (0.5 %) eye 1 appl ophthalmic (eye) TID 5 days 07/05/23 ointment #3.5 grams Allergies Allergy/AdvReac Type Severity Reaction Status Date / Time ibuprofen [IBUPROFEN] Allergy Unknown RASH Verified 07/02/23 18:11 Review of Systems Review of Systems: Constitutional : No Weight loss, No Fever, No Chills, No Fatigue, No Malaise ENT/Mouth : No sore throat, No Rhinorrhea Eyes: + Eye Pain, No Swelling, No Redness Cardiovascular : No Chest Pain, No SOB, No Dyspnea on Exertion, No Orthopnea, No Edema, No Palpitations Respiratory : No Cough, No Sputum, No Wheezing Gastrointestinal : No Nausea, No Vomiting, No Diarrhea, No Constipation, No abdominal Pain, No Hematochezia, No Melena Genitourinary : No Dysuria, No Urinary Frequency, No Hematuria, Musculoskeletal : No joint pain, No Myalgias, No Joint Swelling Skin : No Skin Lesions, No rash Neuro : No Weakness, No Numbness, No Dizziness, No Headache Psych : No Anxiety/Panic, No Depression All other systems reviewed and are negative Yes all other systems are reviewed and are negative [facility] Past Medical History Attestation statement: The following information was validated with the patient. Source: old records reviewed and nursing notes reviewed Medical History Lyme disease Social History Social History Advance Directives: No Advance Directives Information Provided: Yes Physical Exam Vital Signs: Vital Signs: Last Vital Signs Temp 98.1 F 07/05/23 09:20 Pulse 72 07/05/23 09:20 Resp 19 07/05/23 09:20 BP 166/95 H 07/05/23 09:20 Pulse Ox 96 07/05/23 09:20 O2 Del Method Room Air 07/05/23 09:20 BMI result Body Mass Index 38.0 vss Appearance: Alert.? Oriented X3.? No acute distress.? Head: Normocephalic, atraumatic, no step-offs or deformities Eyes: Pupils equal, round and reactive to light.? Extraocular movements intact, pain-free. Able to read letters on phone without difficulty. No overlying skin changes to bilateral orbits. Neck: Normal inspection.? Neck supple.? CVS: Normal heart rate and rhythm.? Pulses normal.? Respiratory: No respiratory distress.? Breath sounds normal.? Abdomen: Soft and nontender.? Skin: Skin warm and dry.? Normal skin color.? Normal skin turgor.? Extremities: No lower extremity edema.? No calf ttp. 5/5 strength to bilateral upper and lower extremities Neuro: Oriented X 3.? No motor deficit.? No sensory deficit. CN 2-12 intact Course Reevaluation(s) Reevaluation #1: Fluorescein stain with a few linear conerneal abrasions to 6 ocklock position of right eye. will give erythromycin ointment. Now complaining of headache typically doesnt get them head CT ordered. Time: 10:47 Reevaluation #2: CT head with no acute intracranial pathology, patient's NIH stroke scale 0. Likely typical headache. Tylenol ordered. Patient feeling better. Will discharge him home with erythromycin ointment for corneal abrasion. Will also discharge him with hydrating eye drops. Educated patient on diagnosis and treatment plan, answered all question, patient verbalizes understanding. At this time patient will be discharged home, advised to return with new or worsening symptoms. Educated on worrisome signs and symptoms and when to return. At this time I feel comfortable discharge home. Time: 12:14 Medications Administered Discontinued Medications Generic Name Dose Route Start Last Admin Trade Name Eleni PRN Reason Stop Dose Admin Acetaminophen 650 mg 07/05/23 11:33 07/05/23 11:47 Acetaminophen 325 Mg Tablet PO 07/05/23 11:34 650 mg ONCE ONE Administration Erythromycin 1 cm 07/05/23 11:32 07/05/23 11:47 Erythromycin Base 0.5% Oph Oin 1 Gm Tube EYE-BOTH 07/05/23 11:33 1 cm ONCE ONE Administration Fluorescein Sodium 1 strip 07/05/23 09:54 07/05/23 10:59 Fluorescein Sodium Strip EYE-BOTH 07/05/23 09:55 1 strip ONCE ONE Administration Tetracaine HCl 3 drop 07/05/23 09:54 07/05/23 10:59 Tetracaine Hcl/Pf 0.5% Oph Leann 4 Ml Drops EYE-BOTH 07/05/23 09:55 3 drop ONCE ONE Administration Medical Decision Making Medical Decision Making [facility] Narrative: 0930 48 year old male presents w/ right eye discomfort X1 week PE benign EOMI pain free. Eye pressure L 15 R 13. History and physical exam concerning for allergic conjunctivitis versus allergies versus corneal abrasion. Unlikely acute closed angle glaucoma, wet macular degeneration, arterial or venous occlusion of the optic vessels. No signs of orbital or periorbital cellulitis. I do not suspect a posterior stroke Plan at this time will obtain visual acuity test, and do a fluorescein stain Differential Diagnosis Differential Diagnoses: The differential diagnosis associated with the presentation includes History and physical exam concerning for allergic conjunctivitis versus allergies versus corneal abrasion. Unlikely acute closed angle glaucoma, wet macular degeneration, arterial or venous occlusion of the optic vessels. No signs of orbital or periorbital cellulitis. I do not suspect a posterior stroke Admission/Observation Consideration of admission/observation: Escalation of care including admission/observation considered no indication Critical Care Time Critical Care Time Critical Care Time: No Discharge Plan Discharge Clinical Impression: Discomfort of right eye, Corneal abrasion, Headache Patient Disposition: Home, Self-Care Instructions: Eye Pain (ED), General Headache (ED) Additional Instructions: Take your medications as prescribed. If you were prescribed antibiotics today, it is important that you take your medication to their entirety, do not skip any doses, do not finish them early. Follow-up with your primary care provider this week. Return to the emergency department with new or worsening symptoms. Such as fevers, chills, chest pain, shortness of breath, nausea, vomiting, dizziness, headache, vision changes, lethargy In case of emergency call 911 Please follow-up with ophthalmology/eye doctor as soon as possible. Prescriptions: New artifi.tears(hypromellose)(PF) 1.7 % drops with applicator 1 drp ophthalmic (eye) BID PRN (Reason: dry eyes) Qty: 12 0RF erythromycin 5 mg/gram (0.5 %) ointment 1 appl ophthalmic (eye) TID 5 Days Qty: 3.5 0RF No Action cephalexin 500 mg capsule 500 mg PO Q6H 7 Days Qty: 28 0RF lisinopril 10 mg tablet 10 mg PO DAILY allopurinol 100 mg tablet 100 mg PO DAILY doxycycline monohydrate 100 mg tablet 100 mg PO BID 30 Days Qty: 60 0RF Referrals: Adela Banks MD [Primary Care Provider] - 2 days Stand Alone Forms: Work/School Release
[2023-07-05] MEDS: Tetracaine HCl/PF 0.5% Oph Sol 4 ML DROPS 3 DROP EYE-BOTH (10:59)
[2023-07-05] MEDS: Fluorescein Sodium STRIP 1 STRIP EYE-BOTH (10:59)
[2023-07-05] MEDS: Erythromycin Base 0.5% Oph Oin 1 GM TUBE 1 CM EYE-BOTH (11:47)
[2023-07-05] MEDS: Acetaminophen 325 MG TABLET 650 MG PO (11:47)
[2023-07-05 12:32] VITALS: BP 135/90
== END 2023-07-05 12:39 | disposition home or self-care (01) ==
PROVIDERS: Emergency Provider Emergency Medicine Emergency Medical Services; PCP Internal Medicine
DX: H57.11 Ocular pain, right eye (principal); R51.9 Headache, unspecified; Z79.899 Other long term (current) drug therapy
CPT/HCPCS: 70450; 99283; 99284

== ENCOUNTER 2023-07-23 08:05 | Emergency (ER) | payer MEDICAID, SELFPAY ==
[2023-07-23 08:16] VITALS: BP 151/98; PULSE 78; RESP 17; TEMP 36.4; O2SAT 96; BMI 41.0
[2023-07-23 08:28] LABS: MANUAL DIFF FLAG NO
[2023-07-23 08:29] LABS: Basophils Percent Auto 0.3 % (0-2); Eosinophils Absolute Auto 0.2 X10*3/uL (0.0-0.4); Eosinophils Percent Auto 3.3 % (0-4); Hematocrit 49.1 % (42.0-52.0); Hemoglobin 16.3 g/dl (14.0-18.0); Imm Gran Abs Auto 0.01 X10*3/uL (0.00-0.03); Imm Gran Pct Auto 0.2 % (0.0-0.4); Lymphocytes Absolute Auto 1.8 X10*3/uL (1.2-4.9); Lymphocytes Percent Auto 31.2 % (20-40); Mean Corpuscular HGB Conc 33.2 g/dl (31.0-36.0); Mean Corpuscular Hemoglobin 27.7 pg (27.0-33.0); Mean Corpuscular Volume 83.5 fL (80.0-98.0); Mean Platelet Volume 10.4 fL (9.4-12.4); Monocytes Absolute Auto 0.7 X10*3/uL (0.1-1.2); Monocytes Percent Auto 11.7 % (2-11); Neutrophils Absolute Auto 3.1 x10*3/uL (2.0-8.3); Neutrophils Percent Auto 53.3 % (45-73); Platelet Count 220 X10*3/uL (160-400); Red Blood Count 5.88 X10*6/uL (4.60-5.80); Red Cell Distribution Width 13.6 % (11.0-16.0); White Blood Count 5.8 X10*3/uL (4.8-10.8)
--- NOTE | 2023-07-23 08:33 | ED_ITS ---
HPI - General Adult General Chief complaint: Headache Stated complaint: numbness r side facial double vision headache Time Seen by Provider: 07/23/23 08:31 Source: patient Mode of arrival: ambulatory Limitations: no limitations History of Present Illness HPI narrative: Patient with 4th visit for right sided headache and eye complaints. Patient has had multiple workup including brain CT. Patient states her headache is worse Onset (ago): week(s) Related Data Home Medications Medication Instructions Recorded Confirmed allopurinol 100 mg tablet 100 mg PO DAILY 04/12/21 lisinopril 10 mg tablet 10 mg PO DAILY 04/12/21 Previous Rx's Medication Instructions Recorded doxycycline monohydrate 100 mg 100 mg PO BID 30 days #60 tabs 04/12/21 tablet cephalexin 500 mg capsule 500 mg PO Q6H 7 days #28 caps 01/14/22 artifi.tears(hypromellose)(PF) 1.7 1 drp ophthalmic (eye) BID PRN dry 07/05/23 % eye drops with applicator eyes #12 mL erythromycin 5 mg/gram (0.5 %) eye 1 appl ophthalmic (eye) TID 5 days 07/05/23 ointment #3.5 grams sumatriptan succinate 25 mg tablet See Rx Instructions PO .COMPLEX 07/23/23 (Imitrex) #10 tabs Allergies Allergy/AdvReac Type Severity Reaction Status Date / Time ibuprofen [IBUPROFEN] Allergy Unknown RASH Verified 07/02/23 18:11 Review of Systems 2 Review of Systems: Yes all other systems are reviewed and are negative Neurologic: Denies Sensory deficit (Neuro) PMFSH Past Medical History Medical History Lyme disease Social History Social History Smoked in Last 30 Days: No Use of substances other than those prescribed or required for medical reasons: No Advance Directives: No Advance Directives Information Provided: Yes Physical Exam ED Vital Signs: Vital Signs - 24 hr 07/23/23 08:16 Temperature 97.6 F Pulse Rate 78 Respiratory Rate 17 Blood Pressure 151/98 H Pulse Oximetry 96 Oxygen Delivery Method Room Air BMI result Body Mass Index 41.0 Const General: healthy appearing Nutritional Appearance: average body habitus Orientation/consciousness: oriented to person and patient oriented x3 Limitations: no limitations HENMT Head: Yes normal to inspection Ears: external ears normal General nose exam: Normal external nose present Mouth: Normal oral and palatal mucosa present and oropharynx normal Throat: Yes posterior oropharynx normal Eyes General: appearance normal, both eyes and all related structures Neck Neck: Yes normal visual inspection Chest Chest palpation & inspection: normal inspection of the chest Resp Auscultation: clear to auscultation bilaterally Cardio Jugular venous distension: no JVD Rate: regular rate Rhythm: regular rhythm Heart sounds: S1 normal heart sound present and S2 normal heart sound present GI Inspection: Yes normal to inspection Palpation (GI): Soft to palpation, nontender and No hepatosplenomegaly present Auscultation: normal bowel sounds General: Yes no CVA tenderness Back/Spine/Pelvis Back: no CVA tenderness Skin General skin exam: no rashes or lesions noted Neuro General: oriented to person and patient oriented x3 Cranial nerves: Yes CN's II-XII intact bilaterally Motor exam (neuro): 5/5 motor strength present throughout Sensory Exam: No Sensory deficit (Neuro) Extrem General: Yes normal to inspection Psych Appearance: grossly normal Course Reevaluation(s) Reevaluation #1: No evidence of cranial nerve deficit. patient improved with immetrex, sleeping headache improved Time: 09:44 Medications Administered Discontinued Medications Generic Name Dose Route Start Last Admin Trade Name Fredyq PRN Reason Stop Dose Admin Sumatriptan Succinate 6 mg 07/23/23 08:42 07/23/23 08:57 Sumatriptan Succinate 6 Mg/0.5 Ml Vial SUBCUT 07/23/23 08:43 6 mg ONCE ONE Administration Medical Decision Making Differential Diagnosis Differential Diagnoses: The differential diagnosis associated with the presentation includes (stroke, brain tumor, migraine headache) Admission/Observation Consideration of admission/observation: Escalation of care including admission/observation considered (upon arrival admission was considered) Lab Data 07/23/23 08:24 07/23/23 08:24 Labs: Lab Results 07/23/23 Range/Units 08:24 WBC 5.8 (4.8-10.8) X10*3/uL RBC 5.88 H (4.60-5.80) X10*6/uL Hgb 16.3 (14.0-18.0) g/dl Hct 49.1 (42.0-52.0) % MCV 83.5 (80.0-98.0) fL MCH 27.7 (27.0-33.0) pg MCHC 33.2 (31.0-36.0) g/dl RDW 13.6 (11.0-16.0) % Plt Count 220 (160-400) X10*3/uL MPV 10.4 (9.4-12.4) fL Immature Gran % (Auto) 0.2 (0.0-0.4) % Neut % (Auto) 53.3 (45-73) % Lymph % (Auto) 31.2 (20-40) % [place] % (Auto) 11.7 H (2-11) % Eos % (Auto) 3.3 (0-4) % Baso % (Auto) 0.3 (0-2) % Lymph # (Auto) 1.8 (1.2-4.9) X10*3/uL [place] # (Auto) 0.7 (0.1-1.2) X10*3/uL Eos # (Auto) 0.2 (0.0-0.4) X10*3/uL Baso # (Auto) 0.0 (0.0-0.2) X10*3/uL Abs Immat Gran (auto) 0.01 (0.00-0.03) X10*3/uL Absolute Neuts (auto) 3.1 (2.0-8.3) x10*3/uL Absolute Nucleated RBC 0.000 (0.0-0.012) X10*3/uL Nucleated RBC % (auto) 0.0 (0.0-0.2) /100WBC Sodium 143 (135-145) mmol/L Potassium 5.0 (3.3-5.1) mmol/L Chloride 107 (96-108) mmol/L Carbon Dioxide 26 (22-29) mmol/L Anion Gap 15 (12-20) BUN 20 H (9-16) mg/dL Creatinine 0.97 (0.5-1.4) mg/dL Estim Creat Clear Calc 133.5 Estimated GFR > 60 Random Glucose 99 (60-115) mg/dL Calcium 9.6 (8.4-10.2) mg/dL Total Bilirubin 0.7 (0.0-1.0) mg/dL AST 24 (5-37) U/L ALT 41 H (0-40) U/L Alkaline Phosphatase 54 (39-117) U/L Total Protein 7.3 (6.5-8.0) g/dL Albumin 4.3 (3.5-5.0) g/dL External Record Review External record reviewed: Outpatient record and Prior outpatient radiology Tests considered The following testing was considered but not selected: MRI of brain considered but non focal neuro exam, Cranial nerves all normal Discharge Plan Discharge Clinical Impression: Migraine Patient Disposition: Home, Self-Care Instructions: Migraine Headache (ED) Prescriptions: New sumatriptan succinate [Imitrex] 25 mg tablet See Rx Instructions .ROUTE .COMPLEX Qty: 10 0RF Rx Instructions: take 1 tab at onset of headache; if no relief may repeat 1 tab after at least 2 hrs; max = 4 tabs/24 hr No Action cephalexin 500 mg capsule 500 mg PO Q6H 7 Days Qty: 28 0RF artifi.tears(hypromellose)(PF) 1.7 % drops with applicator 1 drp ophthalmic (eye) BID PRN (Reason: dry eyes) Qty: 12 0RF erythromycin 5 mg/gram (0.5 %) ointment 1 appl ophthalmic (eye) TID 5 Days Qty: 3.5 0RF lisinopril 10 mg tablet 10 mg PO DAILY allopurinol 100 mg tablet 100 mg PO DAILY doxycycline monohydrate 100 mg tablet 100 mg PO BID 30 Days Qty: 60 0RF
[2023-07-23 08:47] LABS: Alanine Aminotransferase 41 U/L (0-40); Albumin Level 4.3 g/dL (3.5-5.0); Alkaline Phosphatase 54 U/L (39-117); Anion Gap 15 (12-20); Aspartate Amino Transferase 24 U/L (5-37); Bilirubin Total 0.7 mg/dL (0.0-1.0); Blood Urea Nitrogen 20 mg/dL (9-16); Calcium 9.6 mg/dL (8.4-10.2); Carbon Dioxide 26 mmol/L (22-29); Chloride 107 mmol/L (96-108); Creatinine Clr Calc Pharmacy 133.5; Estimated Glomerular Filt Rate > 60; Glucose Random 99 mg/dL (60-115); Sodium 143 mmol/L (135-145); Total Protein 7.3 g/dL (6.5-8.0)
[2023-07-23] MEDS: SUMAtriptan succinate 6 MG/0.5 ML VIAL SUBCUT (08:57)
[2023-07-23 10:22] VITALS: PULSE 64; RESP 16; TEMP 37.1; O2SAT 97
[2023-07-23 10:24] VITALS: BP 169/98
--- NOTE | 2023-07-23 10:26 | PC.NURSE ---
provoder jony made aware of bp- no new order- given ok by jony for d/c. walking well. c/o continued headache. no respiratory distress.
== END 2023-07-23 10:27 | disposition home or self-care (01) ==
PROVIDERS: Emergency Provider Emergency Medicine; PCP Internal Medicine
DX: G43.909 Migraine, unspecified, not intractable, without status migrainosus (principal); H53.2 Diplopia; Z79.899 Other long term (current) drug therapy
CPT/HCPCS: 36415; 80053; 85025; 96372; 99284; J3030

== ENCOUNTER 2023-07-25 08:21 | Emergency (ER) | payer MEDICAID, SELFPAY ==
--- NOTE | ~2023-07-25 | MR_ITS ---
EXAMINATION: MR BRAIN WITHOUT AND WITH CONTRAST CLINICAL INFORMATION: Reported history of Lyme disease. Headaches and double vision. Rule out mass. COMPARISON: Head CT dated 07/05/2023 TECHNIQUE: Multiplanar, multisequence imaging of the brain was performed before and after the intravenous administration of 10 mL of Gadavist. Slightly limited study with motion artifacts. FINDINGS: No diffusion abnormalities are identified to suggest an acute infarct. The ventricles are normal in size. No mass effect or midline shift is seen. Minimal scattered white matter signal changes are visible. No extra-axial fluid collections are seen. The brainstem and cerebellum are normal. On postcontrast imaging, there is no abnormal parenchymal or leptomeningeal enhancement. The gradient refocused acquisition is normal. The craniovertebral junction, marrow signal, and midline structures are normal. The major intracranial flow voids at the level of the [place] of [place] are preserved. The dural venous sinus flow voids are maintained. The mastoid air cells are well aerated. There is mild mucosal thickening in the ethmoid and maxillary sinuses. MR/MR head/brain wo/w con IMPRESSION: Minimal nonspecific white matter signal changes. Otherwise, relatively normal MRI of the brain. No abnormal enhancement or acute process.
[2023-07-25 08:33] VITALS: BP 142/110; PULSE 75; RESP 20; TEMP 36.3; O2SAT 96; BMI 37.7
--- NOTE | 2023-07-25 10:06 | ED_ITS ---
HPI - Headache General Chief Complaint: Headache Stated Complaint: Headache, vision issues Time Seen by Provider: 07/25/23 09:33 Source: patient Mode of arrival: ambulatory Limitations: no limitations History of Present Illness HPI Narrative: 48-year-old male with no significant past medical history who presents emergency department for evaluation of headache. Patient states he has had a constant headache for 1 month. States the headache is located on the right side of his head and behind his right eye. States the pain is a pressure-like pain which is severe in intensity. He states that he has been having double vision over the past month as well. States the double vision is constant. He states that his noted that his on were not moving symmetrically. Patient did have associated nausea but no vomiting. He denied numbness or weakness. He denies blurred vision. He denied fever, chills, chest pain, shortness of breath. Patient was seen on 07/05/2023 for right eye discomfort and headache. He had a CT scan of the brain which is negative any was diagnosed with a corneal abrasion. Patient states he has continued to have pain and he was seen on 07/23/2023 and diagnosed with a migraine headache. He was started on sumatriptan with no relief his pain. Related Data Home Medications Medication Instructions Recorded Confirmed allopurinol 100 mg tablet 100 mg PO DAILY 04/12/21 lisinopril 10 mg tablet 10 mg PO DAILY 04/12/21 Previous Rx's Medication Instructions Recorded doxycycline monohydrate 100 mg 100 mg PO BID 30 days #60 tabs 04/12/21 tablet cephalexin 500 mg capsule 500 mg PO Q6H 7 days #28 caps 01/14/22 artifi.tears(hypromellose)(PF) 1.7 1 drp ophthalmic (eye) BID PRN dry 07/05/23 % eye drops with applicator eyes #12 mL erythromycin 5 mg/gram (0.5 %) eye 1 appl ophthalmic (eye) TID 5 days 07/05/23 ointment #3.5 grams sumatriptan succinate 25 mg tablet See Rx Instructions PO .COMPLEX 07/23/23 (Imitrex) #10 tabs metoclopramide HCl 10 mg tablet 10 mg PO Q6H PRN nausea and 07/25/23 (Reglan) vomiting #14 tabs Allergies Allergy/AdvReac Type Severity Reaction Status Date / Time ibuprofen [IBUPROFEN] Allergy Unknown RASH Verified 07/25/23 08:37 Review of Systems 2 Review of Systems: Yes all other systems are reviewed and are negative [facility] Past Medical History [facility] Narrative: Past medical history: Lyme disease. Social history: He denies tobacco, alcohol and drug use. He is and his is here in the emergency department with him. Medical History Lyme disease Social History Social History Advance Directives: No Physical Exam 2 Vital Signs: Vital Signs: Last Vital Signs Temp 98.2 F 07/25/23 12:02 Pulse 63 07/25/23 12:02 Resp 18 07/25/23 12:02 BP 154/97 H 07/25/23 12:02 Pulse Ox 97 07/25/23 12:02 O2 Del Method Room Air 07/25/23 12:02 BMI result Body Mass Index 37.7 Vital signs did reveal an elevated blood pressure of 142/110 Exam General: Awake, alert in no distress Head: Normocephalic, atraumatic. No temporal region tenderness Eye exam: Patient's pupils are equal round reactive light, extraocular muscles did reveal a lag in the movement of the right eye compared to the left. When the patient is staring to the left his double vision resolves however just before midline the patient develops double vision secondary to right eye lateral lag. With covering each eye the double vision resolves. Lids are normal, sclera contact however normal Neck: Supple, no adenopathy, no trachea midline or C-spine tenderness Lung: breath sounds symmetric, no wheezing, rales or rhonchi Chest: symmetric movement, nontender Heart: regular rate and rhythm, normal S1, S2 no murmurs or rubs Abdomen: soft, non-tender, nondistended, normal bowel sounds Back: no vertebral tenderness, no CVAT Extremities: no deformities, moves all extremities symmetrically Neuro: Awake, alert, oriented, normal speech, cranial nerves intact except for extraocular muscles exam as above, moves all extremities symmetrically, symmetric strength Psych: Pleasant, cooperative Medications Administered Discontinued Medications Generic Name Dose Route Start Last Admin Trade Name Freq PRN Reason Stop Dose Admin Diphenhydramine HCl 25 mg 07/25/23 10:34 07/25/23 10:49 Diphenhydramine Hcl 50 Mg/Ml Vial IVPUSH 07/25/23 10:35 25 mg ONCE ONE Administration Diphenhydramine HCl 50 mg 07/25/23 12:20 07/25/23 12:46 Diphenhydramine Hcl 50 Mg/Ml Vial IVPUSH 07/25/23 12:21 50 mg ONCE STA Administration Gadobutrol 10 ml 07/25/23 11:41 07/25/23 11:41 Gadobutrol 10 Ml Vial IVPUSH 07/25/23 11:42 10 ml ONCE ONE Administration Sodium Chloride 1,000 mls @ 999 mls/hr 07/25/23 10:05 07/25/23 11:45 Ns IV 07/25/23 11:05 Infused .Q1H1M STA Infusion Lorazepam 1 mg 07/25/23 10:34 07/25/23 10:49 Lorazepam 2 Mg/Ml Vial IVPUSH 07/25/23 10:35 1 mg STAT STA Administration Metoclopramide HCl 10 mg 07/25/23 12:20 07/25/23 12:45 Metoclopramide Hcl 10 Mg/2 Ml Vial IVPUSH 07/25/23 12:21 10 mg ONCE STA Administration Morphine Sulfate 4 mg 07/25/23 10:05 07/25/23 10:22 Morphine Sulfate 4 Mg/Ml Cartridge IVPUSH 07/25/23 10:06 4 mg ONCE STA Administration Protocol Ondansetron HCl 4 mg 07/25/23 10:05 07/25/23 10:20 Ondansetron Hcl 4 Mg/2 Ml Vial IVPUSH 07/25/23 10:06 4 mg ONCE ONE Administration Medical Decision Making Medical Decision Making [facility] Narrative: 48-year-old male with no significant past medical history who presents emergency department for evaluation of 1 month of headache and double vision. Patient states the pain is located behind his right eye in the right side of his head, the pain is a constant is moderate to severe pain. States the pain is also associated with double vision in his noted that his eyes do not move symmetrically. This is the patient's 3rd visit here this month for this symptom. The patient's vital signs did reveal an elevated blood pressure. On my examination the patient's right eye does seem to lag behind the left eye any does have double vision which resolves with covering 1 eye. Findings are consistent with binocular diplopia. I ordered the following evaluation: CBC, CMP, ESR, CRP, PT/INR, PTT, TSH with reflex T4, MRI of the brain Patient was treated with morphine 4 mg IV, Zofran 4 mg IV and normal saline x1 L 14:20 The patient felt claustrophobic and anxious at MRI and was treated with Ativan 1 mg IV and Benadryl 50 mg IV. He was able to complete the procedure. MRI of the brain with and without contrast did not reveal any abnormalities which is reassuring. Patient's laboratory evaluation was normal including a non elevated CRP and ESR and normal TSH. At this time I suspect that the patient is having a migraine syndrome as the cause was headache however this does not explain his binocular double vision. Patient will be referred to both Neurology and Ophthalmology. Patient got minimal improvement with morphine and I ordered Reglan 10 mg IV and Benadryl 50 mg IV. Despite this treatment he states that his headache is still 10/10 The patient will be discharged and advised to take the following medications every 6 hours as needed for headache: Benadryl 50 mg, Excedrin migraine 2 pills and Reglan 10 mg Patient will be referred to our neurology group and our cable inspector, Dr. Bowen Differential Diagnosis Differential diagnosis includes was not limited to myasthenia gravis, MS, brain tumor, stroke, giant cell arteritis, hyperthyroidism Admission/Observation Consideration of admission/observation: Escalation of care including admission/observation considered Lab Data MDM Lab Attestation statement: I reviewed the patient's lab results. My interpretation patient's laboratory evaluation is as follows: CBC and CMP were normal. Patient's ESR and C-reactive protein are normal which is reassuring. Patient's TSH was also normal. 07/25/23 10:16 07/25/23 10:16 Labs: Lab Results 07/25/23 Range/Units 10:16 WBC 5.7 (4.8-10.8) X10*3/uL RBC 5.66 (4.60-5.80) X10*6/uL Hgb 15.9 (14.0-18.0) g/dl Hct 48.0 (42.0-52.0) % MCV 84.8 (80.0-98.0) fL MCH 28.1 (27.0-33.0) pg MCHC 33.1 (31.0-36.0) g/dl RDW 13.7 (11.0-16.0) % Plt Count 214 (160-400) X10*3/uL MPV 10.9 (9.4-12.4) fL Immature Gran % (Auto) 0.3 (0.0-0.4) % Neut % (Auto) 67.1 (45-73) % Lymph % (Auto) 20.7 (20-40) % [place] % (Auto) 9.9 (2-11) % Eos % (Auto) 1.7 (0-4) % Baso % (Auto) 0.3 (0-2) % Lymph # (Auto) 1.2 (1.2-4.9) X10*3/uL [place] # (Auto) 0.6 (0.1-1.2) X10*3/uL Eos # (Auto) 0.1 (0.0-0.4) X10*3/uL Baso # (Auto) 0.0 (0.0-0.2) X10*3/uL Abs Immat Gran (auto) 0.02 (0.00-0.03) X10*3/uL Absolute Neuts (auto) 3.8 (2.0-8.3) x10*3/uL Absolute Nucleated RBC 0.000 (0.0-0.012) X10*3/uL Nucleated RBC % (auto) 0.0 (0.0-0.2) /100WBC ESR 5 (0-15) MM/HR PT 11.6 (11.1-13.3) SEC INR 1.0 (0.9-1.1) APTT 28.1 (26.0-36.4) SEC Sodium 136 (135-145) mmol/L Potassium 4.4 (3.3-5.1) mmol/L Chloride 104 (96-108) mmol/L Carbon Dioxide 26 (22-29) mmol/L Anion Gap 10 L (12-20) BUN 18 H (9-16) mg/dL Creatinine 1.09 (0.5-1.4) mg/dL Estim Creat Clear Calc 123.6 Estimated GFR > 60 Random Glucose 98 (60-115) mg/dL Calcium 9.4 (8.4-10.2) mg/dL Total Bilirubin 0.8 (0.0-1.0) mg/dL AST 25 (5-37) U/L ALT 42 H (0-40) U/L Alkaline Phosphatase 53 (39-117) U/L C-Reactive Protein 0.10 (< or = 0.50) mg/dL Total Protein 7.3 (6.5-8.0) g/dL Albumin 4.3 (3.5-5.0) g/dL TSH 1.41 (0.32-4.0) uIU/mL Radiology Impression Discussion of test interpretation with radiology: I have reviewed the radiologist's reading. Radiologist Impression: MR head/brain wo/w con IMPRESSION: Minimal nonspecific white matter signal changes. Otherwise, relatively normal MRI of the brain. No abnormal enhancement or acute process. Dictated By: JAVED FORTUNE MD Critical Care Time Critical Care Time Critical Care Time: Yes Total Critical Care Time: 30 Attestation: Critical Care: The patient was critically ill with a high probability of imminent or life threatening deterioration. I spent greater than 30 minutes of discontinuous time evaluating the patient,delivering critical care at the bedside, discussing and evaluating pertinent data with consultants. Critical care time does not include time spent performing separately billable procedures or teaching. Total time spent performing critical care was 35 minutes. Discharge Plan Discharge Clinical Impression: Headache, Double vision with both eyes open Patient Disposition: Home, Self-Care Instructions: Acute Headache (ED), Diplopia (ED) Additional Instructions: Your blood work was unremarkable. Your inflammatory markers (ESR and CRP) or not elevated and were normal which is reassuring. The MRI of your brain did not reveal any significant abnormality of your brain to explain your double vision or your headaches. For your headache follow the instructions below I want you to take the following 3 medications together every 6 hours as needed for headache, nausea or vomiting. Reglan (metoclopramide) in 10 mg, 1 pill Benadryl 25 mg, 2 pills Excedrin migraine, 2 pills. After you take these medications, lie down in a dark quiet room and try to fall asleep. These medications will make you sleepy, do not drive or work after taking these medications. Please call our neurology group to make a follow-up appointment to further evaluate your headaches. Please call or ophthalmology, to see if he can follow you up and further evaluate your double vision. Please return to the emergency department if your symptoms get worse or if you develop any symptoms that are concerning to you. Prescriptions: New metoclopramide HCl [Reglan] 10 mg tablet 10 mg PO Q6H PRN (Reason: nausea and vomiting) Qty: 14 0RF No Action cephalexin 500 mg capsule 500 mg PO Q6H 7 Days Qty: 28 0RF artifi.tears(hypromellose)(PF) 1.7 % drops with applicator 1 drp ophthalmic (eye) BID PRN (Reason: dry eyes) Qty: 12 0RF erythromycin 5 mg/gram (0.5 %) ointment 1 appl ophthalmic (eye) TID 5 Days Qty: 3.5 0RF sumatriptan succinate [Imitrex] 25 mg tablet See Rx Instructions .ROUTE .COMPLEX Qty: 10 0RF Rx Instructions: take 1 tab at onset of headache; if no relief may repeat 1 tab after at least 2 hrs; max = 4 tabs/24 hr lisinopril 10 mg tablet 10 mg PO DAILY allopurinol 100 mg tablet 100 mg PO DAILY doxycycline monohydrate 100 mg tablet 100 mg PO BID 30 Days Qty: 60 0RF
[2023-07-25] MEDS: 0.9 % Sodium Chloride 1,000 ML 999 ML IV (10:19)
[2023-07-25] MEDS: ondansetron HCL 4 MG/2 ML VIAL IVPUSH (10:20)
[2023-07-25 10:21] LABS: MANUAL DIFF FLAG NO
[2023-07-25] MEDS: Morphine Sulfate 4 MG/ML CARTRIDGE IVPUSH (10:22)
[2023-07-25 10:36] LABS: Basophils Percent Auto 0.3 % (0-2); Eosinophils Absolute Auto 0.1 X10*3/uL (0.0-0.4); Eosinophils Percent Auto 1.7 % (0-4); Hemoglobin 15.9 g/dl (14.0-18.0); Imm Gran Abs Auto 0.02 X10*3/uL (0.00-0.03); Imm Gran Pct Auto 0.3 % (0.0-0.4); Lymphocytes Absolute Auto 1.2 X10*3/uL (1.2-4.9); Lymphocytes Percent Auto 20.7 % (20-40); Mean Corpuscular HGB Conc 33.1 g/dl (31.0-36.0); Mean Corpuscular Hemoglobin 28.1 pg (27.0-33.0); Mean Corpuscular Volume 84.8 fL (80.0-98.0); Mean Platelet Volume 10.9 fL (9.4-12.4); Monocytes Absolute Auto 0.6 X10*3/uL (0.1-1.2); Monocytes Percent Auto 9.9 % (2-11); Neutrophils Absolute Auto 3.8 x10*3/uL (2.0-8.3); Neutrophils Percent Auto 67.1 % (45-73); Platelet Count 214 X10*3/uL (160-400); Red Blood Count 5.66 X10*6/uL (4.60-5.80); Red Cell Distribution Width 13.7 % (11.0-16.0); White Blood Count 5.7 X10*3/uL (4.8-10.8)
[2023-07-25 10:37] LABS: Prothrombin Time 11.6 SEC (11.1-13.3)
[2023-07-25 10:40] LABS: Partial Thromboplastin Time 28.1 SEC (26.0-36.4)
[2023-07-25 10:49] LABS: Alanine Aminotransferase 42 U/L (0-40); Albumin Level 4.3 g/dL (3.5-5.0); Alkaline Phosphatase 53 U/L (39-117); Anion Gap 10 (12-20); Aspartate Amino Transferase 25 U/L (5-37); Bilirubin Total 0.8 mg/dL (0.0-1.0); Blood Urea Nitrogen 18 mg/dL (9-16); Calcium 9.4 mg/dL (8.4-10.2); Carbon Dioxide 26 mmol/L (22-29); Chloride 104 mmol/L (96-108); Creatinine Clr Calc Pharmacy 123.6; Estimated Glomerular Filt Rate > 60; Glucose Random 98 mg/dL (60-115); Potassium 4.4 mmol/L (3.3-5.1); Sodium 136 mmol/L (135-145); Total Protein 7.3 g/dL (6.5-8.0)
[2023-07-25] MEDS: diphenhydrAMINE HCL 50 MG/ML VIAL 25 MG IVPUSH (10:49)
[2023-07-25] MEDS: LORazepam 2 MG/ML VIAL 1 MG IVPUSH (10:49)
--- NOTE | 2023-07-25 10:50 | PC.NURSE ---
Pt began to have increased anxiety, characterized by endorsement of feelings and hyperventilation. Per MD: plan to medicate with 1mg ativan and 25mg benadryl.
[2023-07-25 11:03] LABS: TSH reflex Free T4 1.41 uIU/mL (0.32-4.0)
[2023-07-25 11:14] LABS: Erythrocyte Sedimentation Rate 5 MM/HR (0-15)
[2023-07-25] MEDS: gadobutroL 10 ML VIAL IVPUSH (11:41)
[2023-07-25 12:02] VITALS: BP 154/97; PULSE 63; RESP 18; TEMP 36.8; O2SAT 97
[2023-07-25] MEDS: Metoclopramide HCl 10 MG/2 ML VIAL IVPUSH (12:45)
[2023-07-25] MEDS: diphenhydrAMINE HCL 50 MG/ML VIAL IVPUSH (12:46)
--- NOTE | 2023-07-25 13:53 | PC.NURSE ---
Sleeping at this time. airway patent. skin p/w/d
== END 2023-07-25 15:28 | disposition home or self-care (01) ==
PROVIDERS: Emergency Provider Emergency Medicine Emergency Medical Services; PCP Internal Medicine
DX: R51.9 Headache, unspecified (principal); H53.2 Diplopia; R11.2 Nausea with vomiting, unspecified; Z79.899 Other long term (current) drug therapy
CPT/HCPCS: 36415; 70553; 80053; 84443; 85025; 85610; 85652; 85730; 86140; 96361; 96374; 96375; 99284; 99285; A9585; J1200; J2060; J2270; J2405; J2765

== ENCOUNTER 2023-08-12 08:37 | Emergency (ER) | payer OTHER, SELFPAY ==
[2023-08-12 09:24] VITALS: BP 151/105; PULSE 77; RESP 21; TEMP 36.4; O2SAT 97; BMI 37.6
== END 2023-08-12 13:49 | disposition left against medical advice (07) ==
PROVIDERS: Emergency Provider Emergency Medicine; PCP Internal Medicine
DX: R51.9 Headache, unspecified (principal); H53.2 Diplopia; Z79.899 Other long term (current) drug therapy
CPT/HCPCS: 36415; 80048; 85025; 99281; 99283

== ENCOUNTER 2023-08-16 17:01 | Emergency (ER) | payer OTHER, SELFPAY ==
[2023-08-16 17:11] VITALS: BP 172/100; PULSE 72; RESP 16; TEMP 36.2; O2SAT 96; BMI 40.6
--- NOTE | 2023-08-16 17:11 | ED_ITS ---
HPI - General Adult General Chief complaint: Neuro Symptoms/Deficit Stated complaint: R facial numbness Time Seen by Provider: 08/16/23 20:54 Source: patient and family () Mode of arrival: ambulatory Limitations: no limitations History of Present Illness HPI narrative: 48-year-old male who presents emergency department for evaluation of right-sided headache with pain located behind his right eye, right-sided facial numbness and pain, double vision, nausea, and vomiting. Patient has had these symptoms for approximately 1 month. Patient was actually seen by me in the emergency department on 07/25/2025 and at that time patient's laboratory evaluation was unremarkable including normal ESR and CRP, negative MRI of the brain without IV contrast. Patient states he did follow-up with the our atmospheric chemist and was told that his double vision/diplopia was caused by this constant movement of his eye muscles and was advised to get glasses to help with his double vision which she has not done yet. Patient has seen his PCP and he has been given multiple different medications with no improvement of his headache including Fioricet and Zolmitriphan. Patient states that he was scheduled for an MRI at [place] but did not fit into the MRI machine and this was rescheduled for next week. Patient states that his headache was unbearable today and was greater than 10/10, states that his right face pain was also severe therefore came to emergency department for evaluation. He denied fever, chills, chest pain, shortness of breath. He has had rhinorrhea for 4 days. Related Data Home Medications Medication Instructions Recorded Confirmed allopurinol 100 mg tablet 100 mg PO DAILY 04/12/21 lisinopril 10 mg tablet 10 mg PO DAILY 04/12/21 Previous Rx's Medication Instructions Recorded doxycycline monohydrate 100 mg 100 mg PO BID 30 days #60 tabs 04/12/21 tablet cephalexin 500 mg capsule 500 mg PO Q6H 7 days #28 caps 01/14/22 artifi.tears(hypromellose)(PF) 1.7 1 drp ophthalmic (eye) BID PRN dry 07/05/23 % eye drops with applicator eyes #12 mL erythromycin 5 mg/gram (0.5 %) eye 1 appl ophthalmic (eye) TID 5 days 07/05/23 ointment #3.5 grams sumatriptan succinate 25 mg tablet See Rx Instructions PO .COMPLEX 07/23/23 (Imitrex) #10 tabs metoclopramide HCl 10 mg tablet 10 mg PO Q6H PRN nausea and 07/25/23 (Reglan) vomiting #14 tabs carbamazepine 200 mg tablet 200 mg PO BID #60 tabs 08/16/23 metoclopramide HCl 10 mg tablet 10 mg PO Q6H PRN nausea and 08/16/23 (Reglan) vomiting #14 tabs morphine 15 mg immediate release 15 mg PO Q6H PRN pain #10 tabs 08/16/23 tablet Allergies Allergy/AdvReac Type Severity Reaction Status Date / Time ibuprofen [IBUPROFEN] Allergy Unknown RASH Verified 08/16/23 17:11 Review of Systems 2 Review of Systems: Yes all other systems are reviewed and are negative PENDING SALE TO [facility] Past Medical History PENDING SALE TO [facility] Narrative: Past medical history: None. Social history: He denies tobacco, alcohol and drug use. Onset Date is defined in the Problem List Problems that require an onset date and time if occurred within 24 hrs of arrival to the ED Aortic Dissection and Rupture; Neurologic impairment; Cardiopulmonary Arrest; Endotracheal Intubation; Insertion or Replacement of Mechanical Circulatory Assist Device Medical History Lyme disease Social History Social History Advance Directives: No Advance Directives Information Provided: Yes Physical Exam ED Vital Signs: Vital Signs - 24 hr 08/16/23 17:11 08/16/23 21:29 Temperature 97.2 F 98.4 F Pulse Rate 72 66 Respiratory Rate 16 20 Blood Pressure 172/100 H 187/93 H Pulse Oximetry 96 97 Oxygen Delivery Method Room Air Room Air BMI result Body Mass Index 40.6 Vital signs did reveal an elevated blood pressure of 172/100 otherwise unremarkable Exam: General: Awake, alert in no distress Head: Normocephalic, atraumatic. Patient does have pain with palpation over his left face. EENT: PERRL, Lids normal, sclera normal, conjunctiva normal, nose normal , ears normal, throat without erythema or exudates, extraocular muscles did reveal a lag of the right eye with lateral gaze causing double vision Neck: Supple, no adenopathy, no trachea midline or C-spine tenderness Lung: breath sounds symmetric, no wheezing, rales or rhonchi Chest: symmetric movement, nontender Heart: regular rate and rhythm, normal S1, S2 no murmurs or rubs Abdomen: soft, non-tender, nondistended, normal bowel sounds Back: no vertebral tenderness, no CVAT Extremities: no deformities, moves all extremities symmetrically Neuro: Awake, alert, oriented, normal speech, cranial nerves intact, moves all extremities symmetrically Psych: Pleasant, cooperative Course Course Course Narrative: This is an RME: Additional HPI, ROS, PE not included below will be deferred to primary provider. Patient is a 48-year-old male who presents emergency department for evaluation of worsening right-sided facial numbness, pain behind the right eye, double vision and headache. Symptom onset was 2 months ago has been constant but worse over the past few days. He reports multiple ED visits for this as well. He was due to have MRI/MRA a today but was unable to have this done due to his size. reports a near-syncope episode today. He reports at this time etiology of symptoms is unknown. He is awaiting follow-up with Neurology. Plan: Labs, EKG Medications Administered Discontinued Medications Generic Name Dose Route Start Last Admin Trade Name Freq PRN Reason Stop Dose Admin Diphenhydramine HCl 50 mg 08/16/23 21:14 08/16/23 21:35 Diphenhydramine Hcl 50 Mg/Ml Vial IVPUSH 08/16/23 21:15 50 mg ONCE STA Administration Sodium Chloride 1,000 mls @ 999 mls/hr 08/16/23 21:14 08/16/23 21:35 Ns IV 08/16/23 22:14 999 mls/hr .Q1H1M STA Administration Metoclopramide HCl 10 mg 08/16/23 21:14 08/16/23 21:35 Metoclopramide Hcl 10 Mg/2 Ml Vial IVPUSH 08/16/23 21:15 10 mg ONCE STA Administration Morphine Sulfate 4 mg 08/16/23 21:14 08/16/23 21:35 Morphine Sulfate 4 Mg/Ml Cartridge IVPUSH 08/16/23 21:15 4 mg ONCE STA Administration Protocol Medical Decision Making Medical Decision Making MDM Narrative: 48-year-old male who presents emergency department for evaluation of right-sided headache with pain located behind his right eye, right-sided facial numbness and pain, double vision, nausea, and vomiting x1 month with symptoms getting worse over the past several days.. Patient had a workup in the emergency department on 07/25/2025 which included normal ESR and CRP, negative MRI of the brain without IV contrast. Patient did follow-up with our atmospheric chemist and was diagnosed with diplopia secondary to dysconjugate gaze. Patient has followed up with his PCP and he has been given multiple different medications with no improvement of his headache. Patient is scheduled for an MRI MRA next week that [facility]. Patient's physical examination did reveal tenderness palpation of the right side of his face and dysconjugate gaze causing diplopia. Exam was otherwise unremarkable. Following evaluation was ordered: CBC, CMP, CRP, ESR, influenza, COVID. Patient was treated with normal saline IV x1 L, morphine 4 mg IV x2, Benadryl 50 mg IV and Reglan 10 mg IV 22:29 My interpretation patient's laboratory evaluation is as follows: CBC was normal. ESR was normal. CMP was normal except for an elevated alk-phos of 44. COVID-19 influenza were negative. Patient did get improvement with the above treatment. At this time I do not have a clear etiology for the patient's symptoms, patient may have trigeminal neuralgia. Patient will be started on carbamazepine 200 mg b.i.d He was also given a prescription for Reglan and morphine to try to help with his pain and nausea. Patient was discharged home with verbal and printed instructions and advised to follow-up with his PCP for further evaluation Differential Diagnosis Differential Diagnoses: The differential diagnosis associated with the presentation includes Differential diagnosis includes was not limited to migraine headache, trigeminal neuralgia, giant cell arteritis Admission/Observation Consideration of admission/observation: Escalation of care including admission/observation considered Lab Data [facility] Lab Attestation statement: I reviewed the patient's lab results. 08/16/23 17:36 08/16/23 17:36 Labs: Lab Results 08/16/23 Range/Units 17:36 WBC 7.4 (4.8-10.8) X10*3/uL RBC 5.77 (4.60-5.80) X10*6/uL Hgb 16.3 (14.0-18.0) g/dl Hct 48.1 (42.0-52.0) % MCV 83.4 (80.0-98.0) fL MCH 28.2 (27.0-33.0) pg MCHC 33.9 (31.0-36.0) g/dl RDW 13.6 (11.0-16.0) % Plt Count 255 (160-400) X10*3/uL MPV 10.4 (9.4-12.4) fL Immature Gran % (Auto) 0.3 (0.0-0.4) % Neut % (Auto) 65.4 (45-73) % Lymph % (Auto) 22.9 (20-40) % Carlisle % (Auto) 8.4 (2-11) % Eos % (Auto) 2.6 (0-4) % Baso % (Auto) 0.4 (0-2) % Lymph # (Auto) 1.7 (1.2-4.9) X10*3/uL Carlisle # (Auto) 0.6 (0.1-1.2) X10*3/uL Eos # (Auto) 0.2 (0.0-0.4) X10*3/uL Baso # (Auto) 0.0 (0.0-0.2) X10*3/uL Abs Immat Gran (auto) 0.02 (0.00-0.03) X10*3/uL Absolute Neuts (auto) 4.8 (2.0-8.3) x10*3/uL Absolute Nucleated RBC 0.000 (0.0-0.012) X10*3/uL Nucleated RBC % (auto) 0.0 (0.0-0.2) /100WBC ESR 5 (0-15) MM/HR Sodium 139 (135-145) mmol/L Potassium 4.2 (3.3-5.1) mmol/L Chloride 103 (96-108) mmol/L Carbon Dioxide 27 (22-29) mmol/L Anion Gap 13 (12-20) BUN 15 (9-16) mg/dL Creatinine 0.89 (0.5-1.4) mg/dL Estim Creat Clear Calc 144.7 Estimated GFR > 60 Random Glucose 109 (60-115) mg/dL Calcium 9.2 (8.4-10.2) mg/dL Total Bilirubin 0.5 (0.0-1.0) mg/dL AST 30 (5-37) U/L ALT 44 H (0-40) U/L Alkaline Phosphatase 58 (39-117) U/L C-Reactive Protein 0.31 (< or = 0.50) mg/dL Total Protein 7.4 (6.5-8.0) g/dL Albumin 4.2 (3.5-5.0) g/dL COVID-19 (NESSA) Negative (Negative) COVID-19 Clin Com See Note Influenza Type A (LULI) Negative (Negative) Influenza Type B (LULI) Negative (Negative) Influenza A & B Note See Note Independent Historian Clinical information obtained from an independent historian. History obtained from or confirmed by: Spouse Prescription Management I considered prescription management with: Pain Medication Discharge Plan Discharge Clinical Impression: Diplopia Headache Qualifiers: Intractability: intractable Nausea & vomiting Qualifiers: Vomiting type: unspecified Qualified Code(s): R11.2 - Nausea with vomiting, unspecified Patient Disposition: Home, Self-Care Instructions: Trigeminal Neuralgia (ED) Additional Instructions: Your blood work was unremarkable. At this time I do not have a clear cause for your pain, I am going to treat you for possible trigeminal neuralgia with carbamazepine 200 mg pills, take 1 pill every 12 hours. Take Tylenol (acetaminophen) 2 pills every 4-6 hours as needed for pain. For pain not relieved Tylenol take morphine 15 mg pills, 1 pill every 6 hours as needed for pain. This medication will make you sleepy, do not drive or work while taking this medication. Morphine is a narcotic medication and can be addicting. If you are concerned about addiction you can ask the pharmacist for less pills or do not get this prescription filled Take Reglan (metoclopramide) 10 mg pills, 1 pill every 6 hours as needed for nausea and vomiting. Follow-up with your doctor in 2 days. Please return to the emergency department if your symptoms get worse or if you develop any symptoms that are concerning to you. Prescriptions: New morphine 15 mg tablet 15 mg PO Q6H PRN (Reason: pain) Qty: 10 0RF Rx Instructions: The patient may ask for partial fill; Partial Fill upon patient request. metoclopramide HCl [Reglan] 10 mg tablet 10 mg PO Q6H PRN (Reason: nausea and vomiting) Qty: 14 0RF carbamazepine 200 mg tablet 200 mg PO BID Qty: 60 0RF No Action cephalexin 500 mg capsule 500 mg PO Q6H 7 Days Qty: 28 0RF artifi.tears(hypromellose)(PF) 1.7 % drops with applicator 1 drp ophthalmic (eye) BID PRN (Reason: dry eyes) Qty: 12 0RF erythromycin 5 mg/gram (0.5 %) ointment 1 appl ophthalmic (eye) TID 5 Days Qty: 3.5 0RF sumatriptan succinate [Imitrex] 25 mg tablet See Rx Instructions .ROUTE .COMPLEX Qty: 10 0RF Rx Instructions: take 1 tab at onset of headache; if no relief may repeat 1 tab after at least 2 hrs; max = 4 tabs/24 hr metoclopramide HCl [Reglan] 10 mg tablet 10 mg PO Q6H PRN (Reason: nausea and vomiting) Qty: 14 0RF lisinopril 10 mg tablet 10 mg PO DAILY allopurinol 100 mg tablet 100 mg PO DAILY doxycycline monohydrate 100 mg tablet 100 mg PO BID 30 Days Qty: 60 0RF
--- NOTE | 2023-08-16 17:18 | ECG_ITS ---
Test Reason : NEURO SYMPTOMS Blood Pressure : / mmHG Vent. Rate : 067 BPM Atrial Rate : 067 BPM P-R Int : 182 ms QRS Dur : 096 ms QT Int : 370 ms P-R-T Axes : 026 -16 030 degrees QTc Int : 390 ms Normal sinus rhythm Minimal voltage criteria for LVH, may be normal variant ( R in aVL ) Borderline ECG No previous ECGs available Referred By: Yakelin Robledo Electronically Signed By:DAVIE PALOMARES MD
[2023-08-16 17:45] LABS: MANUAL DIFF FLAG NO
[2023-08-16 17:52] LABS: Basophils Percent Auto 0.4 % (0-2); Eosinophils Absolute Auto 0.2 X10*3/uL (0.0-0.4); Eosinophils Percent Auto 2.6 % (0-4); Hematocrit 48.1 % (42.0-52.0); Hemoglobin 16.3 g/dl (14.0-18.0); Imm Gran Abs Auto 0.02 X10*3/uL (0.00-0.03); Imm Gran Pct Auto 0.3 % (0.0-0.4); Lymphocytes Absolute Auto 1.7 X10*3/uL (1.2-4.9); Lymphocytes Percent Auto 22.9 % (20-40); Mean Corpuscular HGB Conc 33.9 g/dl (31.0-36.0); Mean Corpuscular Hemoglobin 28.2 pg (27.0-33.0); Mean Corpuscular Volume 83.4 fL (80.0-98.0); Mean Platelet Volume 10.4 fL (9.4-12.4); Monocytes Absolute Auto 0.6 X10*3/uL (0.1-1.2); Monocytes Percent Auto 8.4 % (2-11); Neutrophils Absolute Auto 4.8 x10*3/uL (2.0-8.3); Neutrophils Percent Auto 65.4 % (45-73); Platelet Count 255 X10*3/uL (160-400); Red Blood Count 5.77 X10*6/uL (4.60-5.80); Red Cell Distribution Width 13.6 % (11.0-16.0); White Blood Count 7.4 X10*3/uL (4.8-10.8)
[2023-08-16 18:04] LABS: COVID-19 Test Negative (Negative); IDNOW Serial# 08D9AD1C; IDNOW Serial# 152EDE1D; Influenza A Negative (Negative); Influenza B2 Negative (Negative)
[2023-08-16 18:09] LABS: Alanine Aminotransferase 44 U/L (0-40); Albumin Level 4.2 g/dL (3.5-5.0); Alkaline Phosphatase 58 U/L (39-117); Anion Gap 13 (12-20); Aspartate Amino Transferase 30 U/L (5-37); Bilirubin Total 0.5 mg/dL (0.0-1.0); Blood Urea Nitrogen 15 mg/dL (9-16); C Reactive Protein 0.31 mg/dL (< or = 0.50); Calcium 9.2 mg/dL (8.4-10.2); Carbon Dioxide 27 mmol/L (22-29); Chloride 103 mmol/L (96-108); Creatinine Clr Calc Pharmacy 144.7; Estimated Glomerular Filt Rate > 60; Glucose Random 109 mg/dL (60-115); Potassium 4.2 mmol/L (3.3-5.1); Sodium 139 mmol/L (135-145); Total Protein 7.4 g/dL (6.5-8.0)
[2023-08-16 18:41] LABS: Erythrocyte Sedimentation Rate 5 MM/HR (0-15)
[2023-08-16 21:29] VITALS: BP 187/93; PULSE 66; RESP 20; TEMP 36.9; O2SAT 97
[2023-08-16] MEDS: 0.9 % Sodium Chloride 1,000 ML 999 ML IV (21:35)
[2023-08-16] MEDS: Metoclopramide HCl 10 MG/2 ML VIAL IVPUSH (21:35)
[2023-08-16] MEDS: diphenhydrAMINE HCL 50 MG/ML VIAL IVPUSH (21:35)
[2023-08-16] MEDS: Morphine Sulfate 4 MG/ML CARTRIDGE IVPUSH ×2 (21:35→23:26)
== END 2023-08-16 23:31 | disposition home or self-care (01) ==
PROVIDERS: Nurse Practitioner Family; Emergency Provider Emergency Medicine Emergency Medical Services
DX: H53.2 Diplopia (principal); R20.0 Anesthesia of skin; R11.2 Nausea with vomiting, unspecified; Z79.899 Other long term (current) drug therapy; Z11.52 Encounter for screening for COVID-19; Z20.828 Contact with and (suspected) exposure to other viral communicable diseases
CPT/HCPCS: 80053; 85025; 85652; 86140; 87502; 87635; 93005; 96361; 96374; 96375; 96376; 99285; J1200; J2270; J2765

== ENCOUNTER → 2023-08-16 17:18 | Outpatient (BNV) | payer OTHER, SELFPAY | PROVIDERS: Emergency Provider Emergency Medicine Emergency Medical Services; Visit Provider Internal Medicine Cardiovascular Disease | DX: R20.2 Paresthesia of skin (principal) | CPT/HCPCS: 93010 ==

== ENCOUNTER 2023-08-26 09:18 | Outpatient (REF) | payer OTHER, SELFPAY ==
[2023-08-26 11:09] LABS: Erythrocyte Sedimentation Rate 5 MM/HR (0-15)
[2023-08-26 11:40] LABS: HIV AB/AG Nonreactive (Nonreactive); HIV Num 1 0.08 S/CO (0.00-0.99); Syphilis Screen Nonreactive (Nonreactive)
[2023-08-27 23:08] LABS: Lyme Blot >10.00 index
[2023-08-28 12:29] LABS: Lyme Abs Screen POSITIVE
[2023-08-30 16:05] LABS: Angiotensin Converting Enzyme 22.1 U/L (9-67)
[2023-08-30 18:13] LABS: 18 KD (IgG) Band REACTIVE; 23 KD (IgG) Band NON-REACTIVE; 23 KD (IgM) Band NON-REACTIVE; 28 KD (IgG) Band REACTIVE; 30 KD (IgG) Band REACTIVE; 39 KD (IgM) Band NON-REACTIVE; 39KD (IgG) Band REACTIVE; 41 KD (IgM) Band NON-REACTIVE; 41KD (IgG) Band REACTIVE; 45 KD (IgG) Band NON-REACTIVE; 58 KD (IgG) Band REACTIVE; 66 KD (IgG) Band NON-REACTIVE; 93 KD (IgG) Band REACTIVE; Lyme IgG Blot Interp POSITIVE (NEGATIVE); Lyme IgM Blot Interp NEGATIVE (NEGATIVE)
== END 2023-08-26 09:19 | disposition home or self-care (01) ==
LOC: HO.LAB 09:18
PROVIDERS: PCP Internal Medicine; Visit Provider Psychiatry & Neurology Neurology
DX: G03.1 Chronic meningitis (principal)
CPT/HCPCS: 36415; 82164; 85652; 86617; 86618; 86780; 87389

== ENCOUNTER 2023-09-03 09:28 | Day surgery (SDC) | payer OTHER, SELFPAY ==
--- NOTE | ~2023-09-03 | FL_ITS ---
Fluoroscopic lumbar puncture Indication: Chronic meningitis Risks and benefits and possible complications were discussed with the patient and the consent form was signed. Patient was placed prone on the fluoroscopy table. The back was prepped and draped in routine sterile fashion. Betadine was used as a skin antiseptic. Utilizing fluoroscopic guidance, the L3-4 level was accessed with a 22 gague quinkie spinal needle and clear CSF fluid obtained. Opening pressure was 21 cm H20. 8 cc of fluid was sent for analysis. The needle was removed without immediate complications. Total fluoroscopy time: 0.3 min FL/FL guided lumbar puncture LP Impression: Fluoroscopic lumbar puncture This procedure was performed by Mitchell Smart PA-C and supervised by Dr. Perez.
[2023-09-03 09:44] VITALS: BMI 40.7
[2023-09-03 10:01] VITALS: BP 130/100; PULSE 87; RESP 16; TEMP 37; O2SAT 95
[2023-09-03 12:30] VITALS: BP 117/72; PULSE 68; RESP 18; TEMP 37.1; O2SAT 94
[2023-09-03 12:45] VITALS: BP 106/73; PULSE 70; RESP 18; O2SAT 98
[2023-09-03 13:00] VITALS: BP 104/72; PULSE 60; RESP 18; O2SAT 96
[2023-09-03 13:11] LABS: CSF Appearance Clear, Colorless; CSF Tube # 2
[2023-09-03 13:15] VITALS: BP 122/73; PULSE 72; RESP 18; O2SAT 96
[2023-09-03 13:19] LABS: Glucose CSF 51 mg/dL; Total Protein CSF 40.9 mg/dL (15-45)
[2023-09-03 13:30] VITALS: BP 125/76; PULSE 70; RESP 18; TEMP 37.2; O2SAT 96
[2023-09-03 13:43] LABS: Oligoclonal Serum Yes
[2023-09-03 14:30] LABS: Appearance CSF CLEAR; CSF Monos 30 %; Lymphocytes CSF 70 %
[2023-09-03 14:31] LABS: CSF Tube # 4; Color CSF COLORLESS; Red Blood Cell CSF 1 MM*3; White Blood Cell CSF 1 MM*3
[2023-09-06 12:48] LABS: Albumin 4.3 g/dL (3.6-5.1); Albumin, CSF 27.9 mg/dL (8.0-42.0); IgG 745 mg/dL (600-1640); IgG Synthesis Rate 2.5 mg/24 h (-9.9-3.3); IgG, CSF 3.2 mg/dL (0.8-7.7)
[2023-09-07 19:24] LABS: Oligoclonal Banding Absent (Absent)
== END 2023-09-03 13:34 | disposition home or self-care (01) ==
LOC: HO.SSS 09:29
PROVIDERS: Radiology Vascular & Interventional Radiology; PCP Internal Medicine; Visit Provider Psychiatry & Neurology Neurology
PROC: 009U3ZZ Drainage of Spinal Canal, Percutaneous Approach (ICD-10-PCS; CPT 62270; principal; 2023-09-03 11:00)
DX: G03.1 Chronic meningitis (principal); G52.7 Disorders of multiple cranial nerves; G50.0 Trigeminal neuralgia; Z79.899 Other long term (current) drug therapy; Z88.8 Allergy status to other drugs, medicaments and biological substances
CPT/HCPCS: 62328; 82042; 82945; 83916; 84157; 87015; 87070; 87205; 89051

== ENCOUNTER → 2023-09-03 11:00 | Outpatient (BNV) | payer OTHER, SELFPAY | PROVIDERS: PCP Internal Medicine; Visit Provider Radiology Diagnostic Radiology | DX: G03.1 Chronic meningitis (principal) | CPT/HCPCS: 62328 ==

== ENCOUNTER 2023-10-24 11:07 | Outpatient (REF) | payer OTHER, SELFPAY ==
[2023-10-25 15:03] LABS: Lyme Blot 7.86 index
[2023-10-27 10:45] LABS: Lyme Abs Screen POSITIVE
[2023-10-28 18:38] LABS: 18 KD (IgG) Band REACTIVE; 23 KD (IgG) Band NON-REACTIVE; 23 KD (IgM) Band REACTIVE; 28 KD (IgG) Band REACTIVE; 30 KD (IgG) Band REACTIVE; 39 KD (IgM) Band NON-REACTIVE; 39KD (IgG) Band REACTIVE; 41 KD (IgM) Band NON-REACTIVE; 41KD (IgG) Band REACTIVE; 45 KD (IgG) Band NON-REACTIVE; 58 KD (IgG) Band REACTIVE; 66 KD (IgG) Band NON-REACTIVE; 93 KD (IgG) Band REACTIVE; Lyme IgG Blot Interp POSITIVE (NEGATIVE); Lyme IgM Blot Interp NEGATIVE (NEGATIVE)
== END 2023-10-24 11:08 | disposition home or self-care (01) ==
LOC: HO.LAB 11:07
PROVIDERS: PCP Internal Medicine; Visit Provider Psychiatry & Neurology Neurology
DX: G50.0 Trigeminal neuralgia (principal)
CPT/HCPCS: 36415; 86617; 86618

== ENCOUNTER 2024-04-06 06:40 | Emergency (ER) | payer OTHER, SELFPAY ==
--- NOTE | ~2024-04-06 | XR_ITS ---
EXAMINATION: XR FOOT, LEFT CLINICAL INFORMATION: Abdominal pain. COMPARISON: None available. TECHNIQUE: AP, lateral, and oblique views of the left foot. FINDINGS: The bones and soft tissues are normal. No fracture. Alignment is anatomic. Joint spaces are maintained. XR/XR foot LT 2V IMPRESSION: Unremarkable left foot. Electronically signed by: Yimi Caal MD 04/06/2024 08:08 AM EDT RP
[2024-04-06 06:44] VITALS: BP 139/94; PULSE 81; RESP 18; TEMP 36.4; O2SAT 97; BMI 35.0
--- NOTE | 2024-04-06 07:26 | ED.EXTPRO ---
HPI - Extremity Problem General Chief complaint: Extremity Problem Stated complaint: Gout Time Seen by Provider: 04/06/24 07:12 Source: patient Mode of arrival: ambulatory Limitations: no limitations History of Present Illness ED Provider: DR. 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 No fever, no chills. Pain is on the bottom of his left foot toward 5th metatarsophalangeal joint. Related Data Home Medications ?Medication ?Instructions ?Recorded ?Confirmed allopurinol 100 mg tablet 100 mg PO DAILY 04/12/21 lisinopril 10 mg tablet 10 mg PO DAILY 04/12/21 Previous Rx's ?Medication ?Instructions ?Recorded doxycycline monohydrate 100 mg 100 mg PO BID 30 days #60 tabs 04/12/21 tablet cephalexin 500 mg capsule 500 mg PO Q6H 7 days #28 caps 01/14/22 artifi.tears(hypromellose)(PF) 1.7 1 drp ophthalmic (eye) BID PRN dry 07/05/23 % eye drops with applicator eyes #12 mL erythromycin 5 mg/gram (0.5 %) eye 1 appl ophthalmic (eye) TID 5 days 07/05/23 ointment #3.5 grams sumatriptan succinate 25 mg tablet See Rx Instructions PO .COMPLEX 07/23/23 (Imitrex) #10 tabs metoclopramide HCl 10 mg tablet 10 mg PO Q6H PRN nausea and 07/25/23 (Reglan) vomiting #14 tabs carbamazepine 200 mg tablet 200 mg PO BID #60 tabs 08/16/23 metoclopramide HCl 10 mg tablet 10 mg PO Q6H PRN nausea and 08/16/23 (Reglan) vomiting #14 tabs morphine 15 mg immediate release 15 mg PO Q6H PRN pain #10 tabs 08/16/23 tablet colchicine 0.6 mg tablet 0.6 mg PO BID #10 tabs 04/06/24 prednisone 20 mg tablet 20 mg PO BID #10 tabs 04/06/24 Allergies Allergy/AdvReac Type Severity Reaction Status Date / Time ibuprofen [IBUPROFEN] Allergy Unknown RASH Verified 04/06/24 06:44 Review of Systems Review of Systems: All other systems are reviewed and are negative Constitutional: Reports as per HPI and Reports no additional constitutional complaints Eyes: Reports as per HPI and Reports no additional eye complaints Reports system reviewed and no additional complaints, except as documented Cardiovascular: Reports as per HPI and Reports no additional cardiovascular complaints Respiratory: Reports as per HPI and Reports no additional respiratory complaints Gastrointestinal: Reports as per HPI and Reports no additional gastrointestinal complaints Genitourinary: Reports no additional female genitourinary complaints Musculoskeletal: Reports no additional musculoskeletal complaints Skin/Breast: Reports system reviewed and no additional complaints, except as docu Psychiatric: Reports no additional psychiatric complaints Endocrine: Reports no additional endocrine complaints Hematologic/Lymphatic: Reports no additional hematologic/lymphatic complaints Allergic/Immunologic: Reports no additional allergic/immunologic complaints Reports system reviewed and no additional complaints, except as documented and Reports Abnormal speech present [facility] Past Medical History Medical History Lyme disease Social History Social History Advance Directives: No Advance Directives Information Provided: No Physical Exam Vital Signs: Vital Signs: Last Vital Signs Temp 97.6 F 04/06/24 06:44 Pulse 81 04/06/24 06:44 Resp 18 04/06/24 06:44 BP 139/94 H 04/06/24 06:44 Pulse Ox 97 04/06/24 06:44 O2 Del Method Room Air 04/06/24 06:44 BMI result Body Mass Index 35.0 Vital signs have been reviewed and appear to be correct. Blood pressure elevated. Heart rate normal. Respiratory rate normal. Temperature normal. Oxygen saturation normal. Appearance: Alert. Oriented X3. No acute distress. Head: Normal external exam. Normocephalic. Atraumatic. No Elizabeth signs noted. No raccoon eyes noted Eyes: PERRLA. EOMI. Conjunctiva and sclera normal. Eyelids normal. ENT: TM's Normal. Pharynx normal. Uvula midline. Moist mucous membranes. No trismus noted. No drooling noted. No muffled voice noted. Neck: Normal inspection. Neck supple. FROM. No adenopathy. Thyroid Normal. No meningeal signs. No neck mass noted. CVS: Normal heart rate and rhythm. Heart sound normal. No murmurs noted. Pulses normal throughout. Respiratory: No respiratory distress. Painless inspiration. Breath sounds normal. No wheezes/rales/rhonchi noted. Chest nontender. No accessory muscle usage noted or decreased air movement noted. Abdomen: Soft and nontender. Bowel sounds normal in all 4 quadrants. No distention noted. No organomegaly noted. No visible injury noted. Back: No CVA tenderness. Full range of motion noted. Skin: Skin warm and dry. Normal skin color. Normal skin turgor. No rashes/lesions/lacerations noted. Extremities: left foot: No deformity, no swelling, tenderness over the left 5th metatarsophalangeal joint. Neuro: Oriented X 3. Cranial nerve exam: II-XII are grossly intact No motor deficit. No sensory deficit. Reflexes normal. Course Reevaluation(s) Reevaluation #1: Negative x-ray for acute fracture patient had similar attack of gout with similar pain, patient feels better with oxycodone and prednisone will prescribe prednisone for 5 days, colchicine . Patient was instructed to follow-up with his PCP for starting on allopurinol. Time: 09:00 Medications Administered Discontinued Medications Generic Name Dose Route Start Last Admin Trade Name Freq PRN Reason Stop Dose Admin Colchicine 1.2 mg 04/06/24 07:37 04/06/24 07:53 Colchicine 0.6 Mg Tablet PO 04/06/24 07:38 1.2 mg ONCE ONE Administration Oxycodone HCl 5 mg 04/06/24 07:24 04/06/24 07:29 Oxycodone Hcl Immed Release 5 Mg Tablet PO 04/06/24 07:25 5 mg ONCE ONE Administration Prednisone 40 mg 04/06/24 07:25 04/06/24 07:28 Prednisone 20 Mg Tablet PO 04/06/24 07:26 40 mg ONCE ONE Administration Medical Decision Making Differential Diagnosis Differential Diagnoses: The differential diagnosis associated with the presentation includes ( left plantar fascitis, gout arthritis, fracture, sprain of left foot.) Admission/Observation Consideration of admission/observation: Escalation of care including admission/observation considered Independent Interpretation I performed an independent interpretation of an: Plain X-Ray ( Left foot x-ray: No acute foot fracture) Radiology Impression Discussion of test interpretation with radiology: I have reviewed the radiologist's reading. Discharge Plan Discharge Clinical Impression: Gout Patient Disposition: Home, Self-Care Instructions: Gout (ED) Prescriptions: New prednisone 20 mg tablet 20 mg PO BID Qty: 10 0RF colchicine 0.6 mg tablet 0.6 mg PO BID Qty: 10 0RF No Action cephalexin 500 mg capsule 500 mg PO Q6H 7 Days Qty: 28 0RF artifi.tears(hypromellose)(PF) 1.7 % drops with applicator 1 drp ophthalmic (eye) BID PRN (Reason: dry eyes) Qty: 12 0RF erythromycin 5 mg/gram (0.5 %) ointment 1 appl ophthalmic (eye) TID 5 Days Qty: 3.5 0RF sumatriptan succinate [Imitrex] 25 mg tablet See Rx Instructions .ROUTE .COMPLEX Qty: 10 0RF Rx Instructions: take 1 tab at onset of headache; if no relief may repeat 1 tab after at least 2 hrs; max = 4 tabs/24 hr metoclopramide HCl [Reglan] 10 mg tablet 10 mg PO Q6H PRN (Reason: nausea and vomiting) Qty: 14 0RF morphine 15 mg tablet 15 mg PO Q6H PRN (Reason: pain) Qty: 10 0RF Rx Instructions: The patient may ask for partial fill; Partial Fill upon patient request. metoclopramide HCl [Reglan] 10 mg tablet 10 mg PO Q6H PRN (Reason: nausea and vomiting) Qty: 14 0RF carbamazepine 200 mg tablet 200 mg PO BID Qty: 60 0RF lisinopril 10 mg tablet 10 mg PO DAILY allopurinol 100 mg tablet 100 mg PO DAILY doxycycline monohydrate 100 mg tablet 100 mg PO BID 30 Days Qty: 60 0RF Referrals: Adela Banks MD [Primary Care Provider] - Print Language: Welsh
[2024-04-06] MEDS: predniSONE 20 MG TABLET 40 MG PO (07:28)
[2024-04-06] MEDS: oxyCODONE HCl Immed Release 5 MG TABLET PO (07:29)
[2024-04-06] MEDS: Colchicine 0.6 MG TABLET 1.2 MG PO (07:53)
[2024-04-06 08:30] VITALS: BP 132/78; PULSE 70; RESP 16; TEMP 36.6; O2SAT 98
== END 2024-04-06 08:40 | disposition home or self-care (01) ==
PROVIDERS: Emergency Provider Emergency Medicine; PCP Internal Medicine
DX: M10.9 Gout, unspecified (principal); M79.672 Pain in left foot
CPT/HCPCS: 73620; 99283